=== PATIENT | male | born 1955 | race Caucasian/White ===

== ENCOUNTER 2022-01-03 08:22 | Inpatient (IN) ==
[2022-01-03] MEDS ORDERED: dexAMETHasone**PF** 10 MG/ML VIAL IV ONE (08:53)
[2022-01-03] MEDS ORDERED: ONDANSETRON INJ 2 MG/ML 2 ML VIAL IV STA (08:53)
[2022-01-03] MEDS ORDERED: MoRPHine SULFATE 4 MG/ML 1 ML CARP\\VIAL IV PRN (08:53)
[2022-01-03] MEDS ORDERED: MoRPHine SULFATE 10 MG/ML CARP/VIAL IV STA (08:53)
--- NOTE | 2022-01-03 09:13 | Emergency Department Note ---
Impression & Plan Lower back pain, Lumbar disc herniation, Failure of outpatient treatment ED Provider Note NAME: DENNY COLUNGA AGE: 66 SEX: M : 1955 ARRIVES VIA: Walk-In INFORMANT: [Patient] ED PROVIDER(S): [Sal Ribeiro MD] CHIEF COMPLAINT: Back pain HISTORY OF PRESENT ILLNESS: The patient is a 66-year-old male with known lower back pain. For the last 2 weeks has had increased lower back pain that radiates to his left hip. The pain has been severe. He is on Percocet, gabapentin and Zanaflex. He has been to the ER for this pain and received some pain medication injections. The patient had an MRI of his back done about a week ago or so and it showed a disc herniation at L1-L2. The patient has discussed the findings with Dr. Wayne of spinal surgery and he needs an operation. As the patient was worsening, he was sent to the ER today for evaluation and presumed hospitalization for upcoming surgery. The patient states that his legs are not really weak, it is more so pain. He has no difficulty moving his urine or bowels. No numbness in the area of the groin. REVIEW OF SYSTEMS: See HPI for pertinent positives and negatives. A total of ten systems were reviewed and were otherwise negative. PMHx/PSHx: See Below SOCIAL HISTORY: See Below. PHYSICAL EXAM: GENERAL: Patient is in no acute distress. HEENT: No acute trauma, normocephalic atraumatic, mucous membranes moist, no nasal congestion, no scleral icterus. NECK: No stridor, no adenopathy, no meningismus, trachea is midline. LUNGS: Clear to auscultation bilaterally, no wheeze, no rhonchi, breath sounds equal. HEART: Without murmurs gallops or rubs, regular rate and rhythm. ABDOMEN: Soft, nontender, bowel sounds positive, no peritonitis. EXTREMITIES: No cyanosis or edema, full range of motion of all the joints without pain or difficulty, no signs for acute trauma. NEUROLOGIC: Oriented x 3, moves all extremities equally. SKIN: No rash, no jaundice, no diaphoresis. DIFFERENTIAL DIAGNOSIS: Musculoskeletal, disc herniation, fracture, metastatic disease, cord compression, discitis, sciatica, cauda equina, infection, aortic disease, renal colic, gastrointestinal, as well as other pathologies. EMERGENCY DEPARTMENT COURSE/PROCEDURES: MEDICAL DECISION MAKING: There is no leukocytosis or concerning anemia. There is a normal platelet count. No renal failure or significant electrolyte abnormality. Urinalysis does not show infection. COVID test returned negative. On exam, the patient was not febrile or toxic. He denied any issues moving his urine or bowels. Patient received IV Zofran for nausea, IV morphine for pain. He was given IV Decadron for inflammation. I did contact Dr. Wayne of spinal surgery. The patient is to be hospitalized for surgical intervention. The patient is aware of his findings, he understands the need for the hospital stay. I did speak with case management. 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 Beliefs That Will Affect Care: None marital status: Current Living Situation: Spouse Other Information That Helps Us Care for You: No Feels Safe at Home: Yes Safety Concerns: Feels Safe At This Time Assistive Devices: Cane and Walker Allergies Allergies Allergy/AdvReac Type Severity Reaction Status Date / Time No Known Allergies Allergy Verified 01/03/22 14:04 Home Meds Home Medications Medication Instructions Recorded Confirmed cholecalciferol (vitamin D3) 25 1,000 unit PO DAILY 09/19/18 01/03/22 mcg (1,000 unit) tablet (Vitamin D3) metformin 1,000 mg tablet 1,000 mg PO BID 09/19/18 01/03/22 cyanocobalamin (vitamin B-12) 1,000 mcg PO DAILY 12/18/21 01/03/22 1,000 mcg tablet (Vitamin B-12) mesalamine 0.375 gram 1.5 g PO DAILY 12/18/21 01/03/22 capsule,extended release 24 hr (Apriso) fyrzjpwu-adolcmom-ozdpm acid 400 1 tab PO DAILY 12/18/21 01/03/22 mcg-vit K 20 mcg-lycop 300 mcg tablet (Men's Multivitamin) tizanidine 4 mg tablet 4 mg PO Q12H PRN MUSCLE SPASMS 12/18/21 01/03/22 acetaminophen 500 mg tablet 1,000 mg PO Q6H PRN Pain 01/03/22 01/03/22 (Tylenol Extra Strength) oxycodone-acetaminophen 5 mg-325 1 tab PO Q6 PRN Pain 01/03/22 01/03/22 mg tablet Previous Rx's Medication Instructions Recorded gabapentin 300 mg capsule 300 mg PO Q8H #90 caps 12/18/21 Results & Data (ED) Vital Signs Vital Signs - 24 hr 01/03/22 08:29 Temperature 36.7 C Temperature Source Temporal Artery Scan Pulse Rate 117 H Respiratory Rate 20 Respiratory Effort / Characteristics Non-Labored Spontaneous Respiratory Depth Normal Blood Pressure 116/79 Blood Pressure Mean 91 Blood Pressure Position Sitting Pulse Oximetry 94 Oxygen Delivery Method Room Air Sepsis Recent Fever Within 48 Hours No Sepsis New/Unexplained Change in Mental Status N/A Sepsis Action Taken by Nursing No Action Required Home Medications Current Medication List: was personally reviewed by me Laboratory Data Attestation: I reviewed the patient's lab results. Result diagrams: 01/03/22 09:31 01/03/22 09:31 Lab Results 01/03/22 01/03/22 01/03/22 Range/Units 09:31 09:31 09:41 WBC 9.11 (4.8-10.8) K/ul RBC 5.35 (4.63-6.08) M/uL Hgb 16.3 (14.0-18.0) g/dl Hct 47.2 (40.1-51.0) % MCV 88.2 (80.0-100.0) fL MCH 30.5 (25.0-34.0) pg MCHC 34.5 (32.0-36.0) g/dL RDW Std Deviation 41.2 (36.4-46.3) fL RDW Coeff of Margaux 12.9 (11.5-14.5) % Plt Count 292 (130-400) K/uL MPV 9.0 L (9.4-12.4) fL Immature Gran % (Auto) 0.3 % Neut % (Auto) 67.2 % Lymph % (Auto) 18.1 % [place] % (Auto) 8.2 % Eos % (Auto) 5.4 % Baso % (Auto) 0.8 % Neut # (Auto) 6.12 (1.4-6.5) K/uL Lymph # (Auto) 1.65 (1.2-3.4) K/uL [place] # (Auto) 0.75 (0.24-0.82) K/uL Eos # (Auto) 0.49 (0-0.50) K/uL Baso # (Auto) 0.07 (0-0.2) K/uL Immature Gran # (Auto) 0.03 H (0.00-0.02) K/uL Sodium 137 (136-145) mmol/L Potassium 4.8 (3.5-5.1) mmol/L Chloride 101 (98-107) mmol/L Carbon Dioxide 29 (21-32) mmol/L Anion Gap 7 (3-11) BUN 17 (6-23) mg/dl Creatinine 1.00 (0.6-1.4) mg/dl Est Cr Clr Drug Dosing 79.3 ml/min Est GFR ( Amer) 89.9 ml/min Est GFR (Non-Af Amer) 77.5 ml/min BUN/Creatinine Ratio 17.0 (10-20) Glucose 168 H (70-99(Fasting)) mg/dl Calcium 10.1 (8.5-10.1) mg/dl SARS-CoV-2, RNA, NAAT NEGATIVE (NEGATIVE) Administered Medications Acetaminophen (Acetaminophen 500 Mg Tab) 1,000 mg PO Q8H PRN PRN Reason: MILD Pain Scale 1,2,3 & Pre PT Stop: 02/02/22 12:04 Last Admin: 01/03/22 15:18 Dose: 1,000 mg Documented By: AMS Gabapentin (Gabapentin 300 Mg Cap) 300 mg PO Q8H FRANKIE Stop: 02/02/22 12:04 Last Admin: 01/03/22 14:27 Dose: 300 mg Documented By: JEROME Lactated Ringer's (Lr) 1,000 mls @ 75 mls/hr IV .[id number] FRANKIE Stop: 02/02/22 12:04 Last Admin: 01/03/22 13:34 Dose: 75 mls/hr Documented By: BG Discontinued Medications Dexamethasone Sodium Phosphate (DexamethasonePf 10 Mg/Ml Vial) 6 mg IV NOW ONE Stop: 01/03/22 08:54 Last Admin: 01/03/22 09:26 Dose: 6 mg Documented By: BG Morphine Sulfate (Morphine Sulfate 10 Mg/Ml Carp/Vial) 6 mg IV NOW STA Stop: 01/03/22 08:54 Last Admin: 01/03/22 09:26 Dose: 6 mg Documented By: BG Ondansetron HCl (Ondansetron Inj 2 Mg/Ml 2 Ml Vial) 4 mg IV NOW STA Stop: 01/03/22 08:54 Last Admin: 01/03/22 09:26 Dose: 4 mg Documented By: BG Discharge Plan Visit Data Chief Complaint: Back Injury/Pain Stated Complaint: BACK PAIN ED Provider: Sal Ribeiro Discharge Problem: Lower back pain, Lumbar disc herniation, Failure of outpatient treatment Patient Disposition: Admitted As Inpatient Condition: Good Discharge Instructions Interventions: ED Discharge Assessment Last Done: 01/03/22 12:06
[2022-01-03 09:47] LABS: Basophils # (auto) 0.07 K/uL (0-0.2); Basophils % (auto) 0.8 %; Eosinophils # (auto) 0.49 K/uL (0-0.50); Eosinophils % (auto) 5.4 %; Hematocrit (blood only) 47.2 % (40.1-51.0); Hemoglobin 16.3 g/dl (14.0-18.0); Immature Granulocytes # (auto) 0.03 K/uL (0.00-0.02); Immature Granulocytes % (auto) 0.3 %; Lymphocytes # (auto) 1.65 K/uL (1.2-3.4); Lymphocytes % (auto) 18.1 %; Mean Corpuscular Hemoglobin 30.5 pg (25.0-34.0); Mean Corpuscular Hgb Conc 34.5 g/dL (32.0-36.0); Mean Corpuscular Volume 88.2 fL (80.0-100.0); Monocytes # (auto) 0.75 K/uL (0.24-0.82); Monocytes % (auto) 8.2 %; Neutrophils # (auto) 6.12 K/uL (1.4-6.5); Neutrophils % (auto) 67.2 %; Platelet Count 292 K/uL (130-400); RDW Coefficient of Variation 12.9 % (11.5-14.5); RDW Standard Deviation 41.2 fL (36.4-46.3); Red Blood Count 5.35 M/uL (4.63-6.08); White Blood Count 9.11 K/ul (4.8-10.8)
[2022-01-03 10:19] LABS: Calcium 10.1 mg/dl (8.5-10.1); Creatinine Clr Calc Pharmacy 79.3 ml/min; Est GFR (African American) 89.9 ml/min; Est GFR (Non-African American) 77.5 ml/min; Potassium 4.8 mmol/L (3.5-5.1)
--- NOTE | 2022-01-03 10:32 | History & Physical Report ---
Date of Service January 03, 2022 Assessment & Plan (1) HNP (herniated nucleus pulposus), lumbar: Plan: Patient was evaluated in the ER. Patient is being admitted to Dr. Wayne service. Will admit for evaluation with the hospitalist team. We will plan to pursue surgical intervention within the next couple of days in the form of a posterior lumbar decompression and instrumented fusion L1-2, possible interbody cage. All questions have been answered in detail. History of Present Illness Chief Complaint: Back and left leg pain Primary Care Provider: Shayna Dye MD Tim is a pleasant 66-year-old gentleman who presents to the ER this morning due to increasing pain involving his lower back and radiating down his left lower extremity. Symptoms have been ongoing but really quite severe over the past 2 weeks. He has completed physical therapy without improvement. He has seen Dr. Bernal one of her local pain management physicians but after MRI was performed due to his degree of stenosis and disc herniation L1 2 injections were deferred. He met with Dr. Wayne last week for surgical consultation. Carmelo kramer at home he has been taking Zanaflex, Neurontin, Percocet for pain control. Symptoms involve the lower lumbar region rating down the left buttock and thigh. Sometimes it affects the left knee. Right leg is asymptomatic. Standing and walking reproduces symptoms. He is most comfortable lying down or in a seated position. Ambulates independently. Denies bowel or bladder changes. Denies pe rineum numbness. He has had 2 prior lumbar laminectomies [address] Agustin in the . Second 1 was 3 or [address] Alvarado. Allergies Allergy/AdvReac Type Severity Reaction Status Date / Time No Known Allergies Allergy Verified 12/18/21 02:31 Home Medications Medication Instructions Recorded Confirmed Type cholecalciferol (vitamin D3) 25 1,000 unit PO DAILY 09/19/18 12/18/21 History mcg (1,000 unit) tablet (Vitamin D3) metformin 1,000 mg tablet 1,000 mg PO BID 09/19/18 12/18/21 History cyanocobalamin (vitamin B-12) 1,000 mcg PO DAILY 12/18/21 12/18/21 History 1,000 mcg tablet (Vitamin B-12) gabapentin 300 mg capsule 300 mg PO Q8H #90 caps 12/18/21 Rx mesalamine 0.375 gram 1.5 g PO DAILY 12/18/21 12/18/21 History capsule,extended release 24 hr (Apriso) vbjyzggd-aljxtjxh-tnwas acid 400 1 tab PO DAILY 12/18/21 12/18/21 History mcg-vit K 20 mcg-lycop 300 mcg tablet (Men's Multivitamin) tizanidine 4 mg tablet 4 mg PO Q12H PRN MUSCLE SPASMS 12/18/21 12/18/21 History Past Med/Surg History Medical History (Updated 01/03/22 @ 10:31 by Ermelinda Holden PA-C) Chronic back pain HAD EPIDURAL INJECTION 10/03/2018 Diabetes mellitus, type 2 Hearing deficit Spinal stenosis Ulcerative colitis 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 Beliefs That Will Affect Care: None marital status: Current Living Situation: Spouse Feels Safe at Home: Yes Assistive Devices: Walker Review of Systems Review of Systems: All systems reviewed & are unremarkable except as noted in HPI & below Physical Exam Physical Exam: He is seen with his in the emergency room Cooperative with exam Modest distress Alert and orient x3 He has well-healed lumbar incisions Nontender to position of the midline lumbar spine Negative logrolling bilaterally Negative tension signs bilateral Breakaway weakness over the left EHL and dorsiflexion Otherwise 5 5 bilateral quadriceps, hamstrings, hip flexors, hip abductor's and hip adductor No evidence of ankle clonus Constitutional: WD/WN, vitals as above Eyes: normal visual ta by confrontation ENMT: external ear and nose normal, oropharynx normal Neck: trachea midline Respiratory: normal respiratory effort Cardiovascular: Extremities: normal capillary refill Gastrointestinal (Abdomen): Inspection/Auscultation: abdomen normal to insp ection Musculoskeletal: Extremities: extremities normal to inspection and + abnormal strength Skin: normal turgor Neurologic: normal touch/pain/proprioception and moves all extremities Psychiatric: A+Ox3, euthymic affect Eye Contact: good eye contact Speech: normal rate/rhythm/volume of speech Results & Data Results & Data ([facility]) Vital Signs (Past 12 Hours) Vital Signs Temp Pulse Resp BP Pulse Ox O2 Del Method 01/03/22 08:29 36.7 C 117 H 20 116/79 94 Room Air Code Status & VTE Plan VTE Prophylaxis Plan VTE Prophylaxis will be ordered: Yes
[2022-01-03] MEDS ORDERED: LORazepam 0.5 MG TAB PO PRN (12:05)
[2022-01-03] MEDS ORDERED: METOCLOPRAMIDE HCL INJ 5 MG/ML 2 ML VIAL IV PRN (12:05)
[2022-01-03] MEDS ORDERED: ACETAMINOPHEN 1,000 MG/100 ML VIAL IV PRN (12:05)
[2022-01-03] MEDS ORDERED: HYDROmorphone INJ 1 MG/ML SYRINGE IV PRN (12:05)
[2022-01-03] MEDS ORDERED: traMADol HCL 50 MG TABLET PO PRN (12:05)
[2022-01-03] MEDS ORDERED: ONDANSETRON INJ 2 MG/ML 2 ML VIAL IV PRN (12:05)
[2022-01-03] MEDS ORDERED: NALOXONE HCL 0.4 MG/1 ML VIAL/CARP IV PRN (12:05)
[2022-01-03] MEDS ORDERED: PROMETHAZINE HCL 12.5 MG in SODIUM CHLORIDE 0.9% 50 ML IV PRN (12:05)
[2022-01-03] MEDS ORDERED: LACTATED RINGER'S 1,000 ML IV SCH (12:05)
[2022-01-03] MEDS ORDERED: ONDANSETRON 4 MG OD TAB PO PRN (12:05)
[2022-01-03] MEDS ORDERED: HYDROmorphone INJ 0.5 MG/0.5 ML SYR IV PRN (12:05)
[2022-01-03 13:50] LABS: Appearance Urine Clear (Clear); Bilirubin Urine Negative (Negative); Blood Urine Negative (Negative); Color Urine Yellow; Glucose Urine UA Trace (Negative); Ketones Urine Negative (Negative); Leukocyte Esterase Urine Negative (Negative); Nitrite Urine Negative (Negative); Protein Urine Negative (Negative); Specific Gravity Urine 1.011 (1.000-1.030); Urobilinogen Urine Negative (Negative); pH Urine 5.5 (4.5-7.5)
[2022-01-03] MEDS: GABAPENTIN 300 MG CAP PO SCH ×2 (14:27→21:22)
[2022-01-03] MEDS: ACETAMINOPHEN 500 MG TAB PO PRN ×2 (15:18→23:50)
--- NOTE | 2022-01-03 19:24 | Internal Medicine Consult Note ---
Date of Consultation January 03, 2022 Assessment & Plan (1) Lumbar disc herniation: Lumbar disc herniation H/O lumbar spinal stenosis S/P multiple surgeries Ambulatory dysfunction Pain control as per primary team Plan for lumbar decompression fusion surgery by Dr. Wayne Bowel regimen to prevent constipation DM Type II: Will hold oral diabetic meds Check HbA1c: ISS, basal Insulin, Accu checks, Diabetic diet Pharmacy Glycemic control consult Pharmacy to manage Insulin Chronic tachycardia Unclear etiology Check EKG Ulcerative colitis H/O recurrent C. difficile infection Continue mesalamine Currently no acute issues DVT Px: As per Primary Team History of Present Illness Reason for Consultation: Medical Management Requesting Physician: Attending Physician: Oscar Wayne, DO History of Present Illness Patient is a 66-year-old male with history of diabetes mellitus, lumbar spinal stenosis, ulcerative colitis, recurrent C. difficile infection, chronic tachycardia and other medical problems was consulted for medical management. Patient is admitted for management of herniated lumbar disc and was planned for posterior lumbar decompression, fusion surgery. Patient states that his lower back pain has been worsening especially over the past 2 weeks. He complains back pain which is radiating to left lower extremity associated with some numbness. Also reports chronic bilateral toe numbness. He completed physical therapy which did not help with his back pain. He reports having ambulatory dysfunction secondary to the pain. He had an MRI of his back suggestive of lumbar spinal stenosis with disc herniation L1-2. He has been using Zanaflex and Neurontin for pain control which only temporarily helps. He denies any bowel or bladder incontinence. He admits to have undergone multiple lumbar surgeries in the past. His last C. difficile infection was in May which lasted for about 6 weeks as per patient. Denies any history of chest pain, dyspnea, dizziness, cough, fever, chills, fall, headache, change in vision, nausea, vomiting, abdominal pain, diarrhea, dysuria. Allergies Allergy/AdvReac Type Severity Reaction Status Date / Time No Known Allergies Allergy Verified 01/03/22 14:04 Home Medications Medication Instructions Recorded Confirmed Type cholecalciferol (vitamin D3) 25 1,000 unit PO DAILY 09/19/18 01/03/22 History mcg (1,000 unit) tablet (Vitamin D3) metformin 1,000 mg tablet 1,000 mg PO BID 09/19/18 01/03/22 History cyanocobalamin (vitamin B-12) 1,000 mcg PO DAILY 12/18/21 01/03/22 History 1,000 mcg tablet (Vitamin B-12) gabapentin 300 mg capsule 300 mg PO Q8H #90 caps 12/18/21 01/03/22 Rx mesalamine 0.375 gram 1.5 g PO DAILY 12/18/21 01/03/22 History capsule,extended release 24 hr (Apriso) ulvbdphf-vxtndrbo-mxzwr acid 400 1 tab PO DAILY 12/18/21 01/03/22 History mcg-vit K 20 mcg-lycop 300 mcg tablet (Men's Multivitamin) tizanidine 4 mg tablet 4 mg PO Q12H PRN MUSCLE SPASMS 12/18/21 01/03/22 History acetaminophen 500 mg tablet 1,000 mg PO Q6H PRN Pain 01/03/22 01/03/22 History (Tylenol Extra Strength) dulaglutide 0.75 mg/0.5 mL 1.5 mg subcut Q7D 01/03/22 01/03/22 History subcutaneous pen injector (Trulicity) oxycodone-acetaminophen 5 mg-325 1 tab PO Q6 PRN Pain 01/03/22 01/03/22 History mg tablet Patient History Medical History Chronic back pain HAD EPIDURAL INJECTION 10/03/2018 Diabetes mellitus, type 2 Hearing deficit Spinal stenosis Ulcerative colitis 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 Beliefs That Will Affect Care: None marital status: Current Living Situation: Spouse Other Information That Helps Us Care for You: No Feels Safe at Home: Yes Safety Concerns: Feels Safe At This Time Assistive Devices: Cane and Walker Review of Systems Review of Systems: All systems reviewed & are unremarkable except as noted in Subjective Physical Exam Physical Exam: Physical Exam: Vitals signs as noted above General Appearance:Moderately built and nourished, no apparent distress Head: normocephalic, Atraumatic Eyes: normal inspection, EOMI Neck: supple, Trachea midline Respiratory/Chest: Normal breath sounds, CTA, No accessory muscle use Cardiovascular: S1, S2, tachycardia, No murmur Abdomen/GI:Soft, Non tender, Bowel sounds present Extremities/Musculoskeletal:normal inspection, Trace edema Neurologic/Psych:AAOX3, grossly no focal neurological deficits Skin: normal color, warm Results & Data ([facility]) Vital Signs (Past 12 Hours) Vital Signs Temp Pulse Pulse Resp BP BP Pulse Ox 01/03/22 18:22 119 H 22 151/94 H 92 01/03/22 15:20 116 H 18 138/85 92 01/03/22 13:08 105 H 16 141/85 H 92 01/03/22 12:00 108 H 16 125/78 94 01/03/22 10:22 90 18 132/85 98 01/03/22 08:29 36.7 C 117 H 20 116/79 94 O2 Del Method 01/03/22 18:22 Room Air 01/03/22 15:20 Room Air 01/03/22 13:08 Room Air 01/03/22 12:00 Room Air 01/03/22 10:22 01/03/22 08:29 Room Air Laboratory Results Short CBC 01/03/22 Range/Units 09:31 WBC 9.11 (4.8-10.8) K/ul Hgb 16.3 (14.0-18.0) g/dl Hct 47.2 (40.1-51.0) % Plt Count 292 (130-400) K/uL BMP 01/03/22 09:31 Sodium 137 Potassium 4.8 Chloride 101 Carbon Dioxide 29 BUN 17 Creatinine 1.00 Glucose 168 H Calcium 10.1 Urine 01/03/22 Range/Units 13:35 Urine Color Yellow Urine Appearance Clear (Clear) Urine pH 5.5 (4.5-7.5) Ur Specific [place] 1.011 (1.000-1.030) Urine Protein Negative (Negative) Urine Glucose (UA) Trace H (Negative)
[2022-01-03] MEDS ORDERED: PHARMACY GLYCEMIC MGMT CONSULT PRN (19:55)
[2022-01-03] MEDS ORDERED: GLUCOSE 40% GEL 15 GM TUBE PO PRN (19:55)
[2022-01-03] MEDS ORDERED: DEXTROSE 50% 50 ML SYRINGE IV PRN (19:55)
[2022-01-03] MEDS ORDERED: GLUCOSE 10 TAB/TUBE PO PRN (19:55)
[2022-01-03] MEDS ORDERED: GLUCAGON FOR INJ 1 MG VIAL SQ PRN (19:55)
[2022-01-03] MEDS ORDERED: CARBOHYDRATES FOR HYPOGLYCEMIA PO PRN (19:55)
[2022-01-03] MEDS ORDERED: POLYETHYLENE (MIRALAX) 17 GM PACK PO PRN (19:56)
[2022-01-03] MEDS ORDERED: DOCUSATE SODIUM 100 MG CAP PO PRN (19:56)
[2022-01-03] MEDS ORDERED: LANTUS PER UNIT CHARGE SQ SCH ×2 (20:30→21:00)
[2022-01-03] MEDS ORDERED: INSULIN ASPART PER UNIT SC SCH (21:00)
[2022-01-03] MEDS: INSULIN ASPART PER UNIT SC SCH (21:20)
[2022-01-03] MEDS ORDERED: SODIUM CHLORIDE 0.9% 1000ML 1,000 ML IV ONE (23:33)
[2022-01-04] MEDS ORDERED: SODIUM CHLORIDE 0.9% 500 ML IV ONE (02:08)
[2022-01-04] MEDS ORDERED: SODIUM CHLORIDE 0.9% 1000ML 1,000 ML IV ONE (03:00)
[2022-01-04] MEDS: oxyCODONE HCL IR 5 MG TAB (IMMEDIATE RELEASE) PO PRN ×4 (05:02→19:50)
[2022-01-04] MEDS: GABAPENTIN 300 MG CAP PO SCH ×3 (05:16→20:47)
[2022-01-04] MEDS ORDERED: ceFAZolin 2000MG 2,000 MG/15 ML SYR IV SCH (06:00)
[2022-01-04 06:28] LABS: Basophils # (auto) 0.04 K/uL (0-0.2); Basophils % (auto) 0.6 %; Eosinophils # (auto) 0.17 K/uL (0-0.50); Eosinophils % (auto) 2.4 %; Hematocrit (blood only) 43.9 % (40.1-51.0); Hemoglobin 15.2 g/dl (14.0-18.0); Immature Granulocytes # (auto) 0.03 K/uL (0.00-0.02); Immature Granulocytes % (auto) 0.4 %; Lymphocytes # (auto) 1.58 K/uL (1.2-3.4); Lymphocytes % (auto) 22.2 %; Mean Corpuscular Hgb Conc 34.6 g/dL (32.0-36.0); Mean Corpuscular Volume 86.6 fL (80.0-100.0); Mean Platelet Volume 9.1 fL (9.4-12.4); Monocytes # (auto) 0.77 K/uL (0.24-0.82); Monocytes % (auto) 10.8 %; Neutrophils # (auto) 4.52 K/uL (1.4-6.5); Neutrophils % (auto) 63.6 %; Platelet Count 286 K/uL (130-400); RDW Coefficient of Variation 12.7 % (11.5-14.5); RDW Standard Deviation 39.8 fL (36.4-46.3); Red Blood Count 5.07 M/uL (4.63-6.08); White Blood Count 7.11 K/ul (4.8-10.8)
[2022-01-04 06:29] LABS: Estimated Average Glucose 192 mg/dl; Hemoglobin A1C 8.3 % (4.5-5.6)
[2022-01-04 07:05] LABS: BUN Creatinine Ratio 16.3 (10-20); Calcium 9.3 mg/dl (8.5-10.1); Creatinine Clr Calc Pharmacy 92.9 ml/min; Est GFR (Non-African American) 89.7 ml/min; Magnesium 2.1 mg/dl (1.7-2.4); Potassium 3.7 mmol/L (3.5-5.1)
--- NOTE | 2022-01-04 07:44 | Hospitalist Progress Note ---
Date of Service January 04, 2022 Assessment & Plan (1) Lumbar disc herniation: Plan: Lumbar disc herniation H/O lumbar spinal stenosis S/P multiple surgeries Ambulatory dysfunction Pain control as per primary team Plan for lumbar decompression fusion surgery by Dr. Wayne Bowel regimen to prevent constipation DM Type II: Will hold oral diabetic meds Current HbA1c 8.3% - close PCP follow to arranged after DC ISS, basal Insulin, Accu checks, Diabetic diet Pharmacy Glycemic control consult Pharmacy to manage Insulin Chronic tachycardia Unclear etiology EKG with T inversions in inferior leads, sinus tachycardia Pt with no chest pain or any cardiac history Echo ordered Ulcerative colitis H/O recurrent C. difficile infection Continue mesalamine Currently no acute issues DVT Px: As per Primary Team Admission and Anticipated Discharge Date Admission Date: January 03, 2022 Subjective Pt seen in follow up/ consultation for lumbar disc herniation, plan for OR likely tmrw HbA1c 8.3% - close pcp follow up to be arranged Patient is currently laying in bed, in no acute distress, when ambulating he is bent over, continues to have back pain No fever, chills, chest pain, shortness of breath Review of Systems Review of Systems: All systems reviewed & are unremarkable except as noted in Subjective Physical Exam Physical Exam: General Appearance:Moderately built and nourished, no apparent distress Head: normocephalic, Atraumatic Eyes: normal inspection, EOMI Neck: supple, Trachea midline Respiratory/Chest: Normal breath sounds, CTA, No accessory muscle use Cardiovascular: S1, S2, mild tachycardia, No murmur Abdomen/GI:Soft, Non tender, Bowel sounds present Extremities/Musculoskeletal:normal inspection, Trace edema Neurologic/Psych:AAOX3, grossly no focal neurological deficits Skin: normal color, warm Results & Data Results & Data ([facility]) Vital Signs (Past 12 Hours) Vital Signs Temp Pulse Pulse Resp BP Pulse Ox O2 Del Method 01/04/22 05:10 96 H 152/96 H 01/04/22 02:06 114 H 116/80 01/03/22 23:35 112 H 149/90 H 01/03/22 21:50 37 C 120 H 20 147/94 H 91 Room Air Laboratory Results 01/04/22 01/04/22 01/04/22 Range/Units 17:03 12:09 08:00 WBC (4.8-10.8) K/ul RBC (4.63-6.08) M/uL Hgb (14.0-18.0) g/dl Hct (40.1-51.0) % MCV (80.0-100.0) fL MCH (25.0-34.0) pg MCHC (32.0-36.0) g/dL RDW Std Deviation (36.4-46.3) fL RDW Coeff of Margaux (11.5-14.5) % Plt Count (130-400) K/uL MPV (9.4-12.4) fL Immature Gran % (Auto) % Neut % (Auto) % Lymph % (Auto) % Prentiss % (Auto) % Eos % (Auto) % Baso % (Auto) % Neut # (Auto) (1.4-6.5) K/uL Lymph # (Auto) (1.2-3.4) K/uL Prentiss # (Auto) (0.24-0.82) K/uL Eos # (Auto) (0-0.50) K/uL Baso # (Auto) (0-0.2) K/uL Immature Gran # (Auto) (0.00-0.02) K/uL Sodium (136-145) mmol/L Potassium (3.5-5.1) mmol/L Chloride (98-107) mmol/L Carbon Dioxide (21-32) mmol/L Anion Gap (3-11) BUN (6-23) mg/dl Creatinine (0.6-1.4) mg/dl Est Cr Clr Drug Dosing ml/min Est GFR ( Amer) ml/min Est GFR (Non-Af Amer) ml/min BUN/Creatinine Ratio (10-20) Glucose (70-99(Fasting)) mg/dl POC Glucose 102 H 112 H 129 H (70-99) mg/dl Estimat Average Glucose mg/dl Hemoglobin A1c (4.5-5.6) % Calcium (8.5-10.1) mg/dl Magnesium (1.7-2.4) mg/dl 01/04/22 01/04/22 01/04/22 Range/Units 05:33 05:33 05:33 WBC 7.11 (4.8-10.8) K/ul RBC 5.07 (4.63-6.08) M/uL Hgb 15.2 (14.0-18.0) g/dl Hct 43.9 (40.1-51.0) % MCV 86.6 (80.0-100.0) fL MCH 30.0 (25.0-34.0) pg MCHC 34.6 (32.0-36.0) g/dL RDW Std Deviation 39.8 (36.4-46.3) fL RDW Coeff of Margaux 12.7 (11.5-14.5) % Plt Count 286 (130-400) K/uL MPV 9.1 L (9.4-12.4) fL Immature Gran % (Auto) 0.4 % Neut % (Auto) 63.6 % Lymph % (Auto) 22.2 % Prentiss % (Auto) 10.8 % Eos % (Auto) 2.4 % Baso % (Auto) 0.6 % Neut # (Auto) 4.52 (1.4-6.5) K/uL Lymph # (Auto) 1.58 (1.2-3.4) K/uL Prentiss # (Auto) 0.77 (0.24-0.82) K/uL Eos # (Auto) 0.17 (0-0.50) K/uL Baso # (Auto) 0.04 (0-0.2) K/uL Immature Gran # (Auto) 0.03 H (0.00-0.02) K/uL Sodium 140 (136-145) mmol/L Potassium 3.7 D (3.5-5.1) mmol/L Chloride 106 (98-107) mmol/L Carbon Dioxide 26 (21-32) mmol/L Anion Gap 8 (3-11) BUN 14 (6-23) mg/dl Creatinine 0.86 (0.6-1.4) mg/dl Est Cr Clr Drug Dosing 92.9 ml/min Est GFR ( Amer) 104.0 ml/min Est GFR (Non-Af Amer) 89.7 ml/min BUN/Creatinine Ratio 16.3 (10-20) Glucose 131 H (70-99(Fasting)) mg/dl POC Glucose (70-99) mg/dl Estimat Average Glucose 192 mg/dl Hemoglobin A1c 8.3 H (4.5-5.6) % Calcium 9.3 (8.5-10.1) mg/dl Magnesium 2.1 (1.7-2.4) mg/dl 01/03/22 01/03/22 Range/Units 20:09 09:31 WBC (4.8-10.8) K/ul RBC (4.63-6.08) M/uL Hgb (14.0-18.0) g/dl Hct (40.1-51.0) % MCV (80.0-100.0) fL MCH (25.0-34.0) pg MCHC (32.0-36.0) g/dL RDW Std Deviation (36.4-46.3) fL RDW Coeff of Margaux (11.5-14.5) % Plt Count (130-400) K/uL MPV (9.4-12.4) fL Immature Gran % (Auto) % Neut % (Auto) % Lymph % (Auto) % Prentiss % (Auto) % Eos % (Auto) % Baso % (Auto) % Neut # (Auto) (1.4-6.5) K/uL Lymph # (Auto) (1.2-3.4) K/uL Prentiss # (Auto) (0.24-0.82) K/uL Eos # (Auto) (0-0.50) K/uL Baso # (Auto) (0-0.2) K/uL Immature Gran # (Auto) (0.00-0.02) K/uL Sodium (136-145) mmol/L Potassium (3.5-5.1) mmol/L Chloride (98-107) mmol/L Carbon Dioxide (21-32) mmol/L Anion Gap (3-11) BUN (6-23) mg/dl Creatinine (0.6-1.4) mg/dl Est Cr Clr Drug Dosing ml/min Est GFR ( Amer) ml/min Est GFR (Non-Af Amer) ml/min BUN/Creatinine Ratio (10-20) Glucose (70-99(Fasting)) mg/dl POC Glucose 203 H (70-99) mg/dl Estimat Average Glucose mg/dl Hemoglobin A1c (4.5-5.6) % Calcium (8.5-10.1) mg/dl Magnesium 2.0 (1.7-2.4) mg/dl Medications Administered Current Inpatient Medications Acetaminophen (Acetaminophen 500 Mg Tab) 1,000 mg PO Q8H PRN PRN Reason: MILD Pain Scale 1,2,3 & Pre PT Stop: 02/02/22 12:04 Last Admin: 01/03/22 23:50 Dose: 1,000 mg Dextrose (Dextrose 50% 50 Ml Syringe) 25 - 50 ml IV UD PRN; Protocol PRN Reason: Hypoglycemia Protocol Stop: 02/02/22 19:54 Docusate Sodium (Docusate Sodium 100 Mg Cap) 100 mg PO BID PRN PRN Reason: Constipation Stop: 02/02/22 20:59 Gabapentin (Gabapentin 300 Mg Cap) 300 mg PO Q8H FRANKIE Stop: 02/02/22 12:04 Last Admin: 01/04/22 05:16 Dose: 300 mg Glucagon (Glucagon For Inj 1 Mg Vial) 1 mg SQ UD PRN; Protocol PRN Reason: Hypoglycemia Protocol Stop: 02/02/22 19:54 Glucose (Glucose 40% Gel 15 Gm Tube) 15 - 30 gm PO UD PRN; Protocol PRN Reason: Hypoglycemia Protocol Stop: 02/02/22 19:54 Glucose (Glucose 10 Tab/Tube) 4 - 8 tab PO UD PRN; Protocol PRN Reason: Hypoglycemia Treatment Stop: 02/02/22 19:54 Hydromorphone HCl (Hydromorphone Inj 0.5 Mg/0.5 Ml Syr) 0.5 mg IV Q3H PRN PRN Reason: MOD pain (scale 4-6) & Pre PT Stop: 01/17/22 12:04 Hydromorphone HCl (Hydromorphone Inj 1 Mg/Ml Syringe) 1 mg IV Q3H PRN PRN Reason: severe pain (scale 7-10) Stop: 01/17/22 12:04 Promethazine HCl 12.5 mg/ (Sodium Chloride) 50.5 mls @ 202 mls/hr IV Q6H PRN PRN Reason: Nausea &/or Vomiting Stop: 02/02/22 12:04 Acetaminophen (Ofirmev) 1,000 mg in 100 mls @ 400 mls/hr IV Q8H PRN PRN Reason: Pain Rating 1-3 & Pre PT Stop: 01/04/22 12:06 Sodium Chloride (Nss 1000ml) 1,000 mls @ 100 mls/hr IV .Q10H ONE Stop: 01/04/22 12:59 Last Infusion: 01/04/22 06:44 Dose: 100 mls/hr Cefazolin Sodium (Ancef 2000mg) 2,000 mg in 15 mls @ 3.75 mls/min IV PREOP FRANKIE; Protocol Stop: 01/06/22 05:59 Insulin Aspart (Insulin Aspart Per Unit) 0 units SC ACHS FRANKIE Stop: 02/02/22 20:59 Last Admin: 01/03/22 21:20 Dose: 6 units Lorazepam (Lorazepam 0.5 Mg Tab) 0.5 mg PO Q8H PRN PRN Reason: sedation/anxiety Stop: 02/02/22 12:04 Metoclopramide HCl (Metoclopramide Hcl Inj 5 Mg/Ml 2 Ml Vial) 10 mg IV Q6H PRN PRN Reason: Nausea &/or Vomiting Stop: 02/02/22 12:04 Miscellaneous (Mesalamine [Apriso] 0.375 Gram Capsule ~ Order Awaiting Action) 1 each N/A QS FRANKIE Stop: 02/03/22 00:00 Last Admin: 01/03/22 23:50 Dose: Not Given Miscellaneous (Carbohydrates For Hypoglycemia ) 15 - 30 gm PO UD PRN PRN Reason: Hypoglycemia Protocol Stop: 02/02/22 19:54 Miscellaneous Information (Pharmacy Glycemic Mgmt Consult) 1 each N/A UD PRN PRN Reason: Consult Stop: 02/02/22 19:54 Morphine Sulfate (Morphine Sulfate 4 Mg/Ml 1 Ml Carp\Vial) 4 mg IV Q30M PRN PRN Reason: Pain Stop: 01/17/22 08:52 Naloxone HCl (Naloxone Hcl 0.4 Mg/1 Ml Vial/Carp) 0.1 mg IV Q5M PRN PRN Reason: Oversedation/respiratory dep Stop: 02/02/22 12:04 Ondansetron HCl (Ondansetron Inj 2 Mg/Ml 2 Ml Vial) 4 mg IV Q6H PRN PRN Reason: Nausea &/or Vomiting Stop: 02/02/22 12:04 Ondansetron HCl (Ondansetron 4 Mg Od Tab) 4 mg PO Q6H PRN PRN Reason: Nausea Stop: 02/02/22 12:04 Oxycodone HCl (Oxycodone Hcl Ir 5 Mg Tab (Immediate Release)) 5 - 10 mg PO Q4H PRN PRN Reason: mod to severe pain Stop: 01/17/22 12:04 Last Admin: 01/04/22 05:02 Dose: 5 mg Polyethylene Glycol (Polyethylene (Miralax) 17 Gm Pack) 17 gm PO DAILY PRN PRN Reason: Constipation Stop: 02/02/22 19:55 Tramadol HCl (Tramadol Hcl 50 Mg Tablet) 50 - 100 mg PO Q4H PRN PRN Reason: Moderate-Severe pain & Pre PT Stop: 02/02/22 12:04
--- NOTE | 2022-01-04 08:30 | Orthopedic Progress Note ---
Date of Service January 04, 2022 Assessment & Plan (1) Lumbar disc herniation: Plan: I will continue with pain control today. Ambulate ad flash. We will make n.p.o. after midnight in anticipation of proceeding with surgical intervention with Dr. Wayne tomorrow. All questions have been answered in detail. Admission and Anticipated Discharge Date Admission Date: January 03, 2022 Subjective Patient had an uneventful evening. No change in pain or symptoms. Currently planning to undergo surgical intervention in the form of a posterior lumbar decompression and fusion at L1-[address] Wayne. Review of Systems Review of Systems: All systems reviewed & are unremarkable except as noted in HPI & below Physical Exam Physical Exam: Alert and oriented x3 No acute distress Strength unchanged lower extremities Results & Data ([facility]) Vital Signs (Past 12 Hours) Vital Signs Temp Pulse Pulse Resp BP Pulse Ox O2 Del Method 01/04/22 07:57 36.6 C 100 H 20 159/82 H 93 Nasal Cannula 01/04/22 05:10 96 H 152/96 H 01/04/22 02:06 114 H 116/80 01/03/22 23:35 112 H 149/90 H 01/03/22 21:50 37 C 120 H 20 147/94 H 91 Room Air
[2022-01-04] MEDS: INSULIN ASPART PER UNIT SC SCH ×4 (09:33→21:29)
--- NOTE | 2022-01-04 11:02 | Anesthesiology Consultation ---
Date of Service January 04, 2022 Assessment & Plan (1) Encounter for pre-operative examination: Chart Review Chart Review: Acceptable Risk for Surgery and Patient NOT seen in Pre Admission Testing Consults Requested none medicine team is following the patient History Surgery Operation Date: 01/05/22 13:25 Proposed Procedures p L1-L2 Decompression and Fusion - Oscar Wayne DO Height/Weight Height: 5 ft 9 in Weight: 90.9 kg Allergies Allergy/AdvReac Type Severity Reaction Status Date / Time No Known Allergies Allergy Verified 01/03/22 14:04 Medications Home Medications Medication Instructions Recorded Confirmed Last Taken cholecalciferol (vitamin D3) 25 1,000 unit PO DAILY 09/19/18 01/03/22 12/17/21 mcg (1,000 unit) tablet (Vitamin D3) metformin 1,000 mg tablet 1,000 mg PO BID 09/19/18 01/03/22 01/03/22 07:00 cyanocobalamin (vitamin B-12) 1,000 mcg PO DAILY 12/18/21 01/03/22 12/17/21 1,000 mcg tablet (Vitamin B-12) gabapentin 300 mg capsule 300 mg PO Q8H #90 caps 12/18/21 01/03/22 01/03/22 07:00 mesalamine 0.375 gram 1.5 g PO DAILY 12/18/21 01/03/22 01/03/22 07:00 capsule,extended release 24 hr (Apriso) [id number] acid 400 1 tab PO DAILY 12/18/21 01/03/22 12/17/21 mcg-vit K 20 mcg-lycop 300 mcg tablet (Men's Multivitamin) tizanidine 4 mg tablet 4 mg PO Q12H PRN MUSCLE SPASMS 12/18/21 01/03/22 01/03/22 07:00 acetaminophen 500 mg tablet 1,000 mg PO Q6H PRN Pain 01/03/22 01/03/22 01/03/22 07:00 (Tylenol Extra Strength) dulaglutide 0.75 mg/0.5 mL 1.5 mg subcut Q7D 01/03/22 01/03/22 Unknown subcutaneous pen injector (Trulicity) oxycodone-acetaminophen 5 mg-325 1 tab PO Q6 PRN Pain 01/03/22 01/03/22 01/03/22 07:00 mg tablet Active Medications Generic Name Dose Route Start Last Admin Trade Name Freq PRN Reason Stop Dose Admin Acetaminophen 1,000 mg 01/03/22 12:05 01/03/22 23:50 Acetaminophen 500 Mg Tab PO 02/02/22 12:04 1,000 mg Q8H PRN Administration MILD Pain Scale 1,2,3 & Pre PT Gabapentin 300 mg 01/03/22 12:05 01/04/22 05:16 Gabapentin 300 Mg Cap PO 02/02/22 12:04 300 mg Q8H FRANKIE Administration Sodium Chloride 1,000 mls @ 100 mls/hr 01/04/22 03:00 01/04/22 06:44 Nss 1000ml IV 01/04/22 12:59 100 mls/hr .Q10H ONE Infusion Insulin Aspart 0 units 01/03/22 21:00 01/04/22 09:33 Insulin Aspart Per Unit SC 02/02/22 20:59 6 units ACHS FRANKIE Administration Miscellaneous 1 each 01/04/22 00:00 01/04/22 07:46 Mesalamine [Apriso] 0.375 Gram Capsule ~ Order Awaiting Action N/A 02/03/22 00:00 Not Given QS FRANKIE Oxycodone HCl 5 - 10 mg 01/03/22 12:05 01/04/22 05:02 Oxycodone Hcl Ir 5 Mg Tab (Immediate Release) PO 01/17/22 12:04 5 mg Q4H PRN Administration mod to severe pain Past Medical History Medical History (Updated 01/04/22 @ 11:01 by Abimael Munoz MD) Chronic back pain HAD EPIDURAL INJECTION 10/03/2018 Diabetes mellitus, type 2 Hearing deficit Spinal stenosis Ulcerative colitis 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 Residual deficit in L 5th digit Past Family History Family History Mother Colon cancer Father Myocardial infarction Past Surgical History Surgical History H/O tooth extraction History of colonoscopy History of lumbar surgery History of surgery on arm LUE ulnar nerve transposition History of total knee replacement B/L Social History Smoking Status: Never smoker Hx Alcohol Use: No Hx Substance Use: No substance use type: does not use Physical Exam Vital Signs Last Vital Signs Temp 36.6 C 01/04/22 07:57 Pulse 100 H 01/04/22 07:57 Resp 20 01/04/22 07:57 BP 159/82 H 01/04/22 07:57 Pulse Ox 93 01/04/22 07:57 O2 Del Method 01/04/22 07:57 Testing Laboratory Results 01/04/22 05:33 01/04/22 05:33 Hemoglobin A1c 8.3 % (4.5-5.6) H 01/04/22 05:33 Urine Color Yellow 01/03/22 13:35 Urine Appearance Clear (Clear) 01/03/22 13:35 Urine pH 5.5 (4.5-7.5) 01/03/22 13:35 Ur Specific [place] 1.011 (1.000-1.030) 01/03/22 13:35 Urine Protein Negative (Negative) 01/03/22 13:35 Urine Glucose (UA) Trace (Negative) H 01/03/22 13:35 Urine Ketones Negative (Negative) 01/03/22 13:35 Urine Nitrite Negative (Negative) 01/03/22 13:35 Ur Leukocyte Esterase Negative (Negative) 01/03/22 13:35 01/04/22 08:00 POC Glucose 129 H Electrocardiogram Date: 01/03/22 Findings: + T wave inversion (inferior leads) and + ST @ (116)
[2022-01-04] MEDS ORDERED: MESALAMINE 1.2 GM PO SCH ×2 (12:00→12:15)
[2022-01-04] MEDS: MESALAMINE 1.2 GM PO SCH (12:46)
--- NOTE | 2022-01-04 15:18 | Pharmacy Report ---
Pharmacy Glycemic Short Note 2 - Date of Service January 04, 2022 - Glycemic Short BSG Results (Last 24 hours): 01/03/22 01/04/22 01/04/22 20:09 05:33 08:00 Glucose 131 H POC Glucose 203 H 129 H 01/04/22 12:09 Glucose POC Glucose 112 H OUTPATIENT ANTIDIABETIC REGIMEN: * Metformin 1 gm BID, Trulicity * A1c 8.3% 01/04 ASSESSMENT: * Pt admitted for spinal surgery, 01/05. Will be NPO after midnight---> reduce/hold lantus this evening per scale * BSGs have been well controlled today, continue current novolog parameters PLAN FOR INPATIENT GLYCEMIC CONTROL: * Hold outpatient oral diabetes medications * Basal insulin * Lantus 0/7 units HS x 1 * Bolus insulin * NovoLog per scale ACHS or Q6hrs while NPO * Goal Range: Low 110 mg/dL - High 140 mg/dL * Correction Factor: 25 mg/dL/unit * Nutritional / Prandial insulin per carb ratio of 1 unit per 9 grams CHO consumed
[2022-01-04] MEDS ORDERED: LANTUS PER UNIT CHARGE SQ SCH (21:00)
[2022-01-05] MEDS ORDERED: Nursing to Pharmacy Communication SCH ×2 (01:00→19:30)
--- NOTE | 2022-01-05 05:16 | Electrocardiogram Report ---
Test Reason : Blood Pressure : / mmHG Vent. Rate : 116 BPM Atrial Rate : 116 BPM P-R Int : 178 ms QRS Dur : 080 ms QT Int : 308 ms P-R-T Axes : -01 -27 -26 degrees QTc Int : 428 ms Sinus tachycardia T wave abnormality, consider inferior ischemia When compared with ECG of 23-OCT-2018 13:24, T wave inversion more evident in Inferior leads Confirmed by James Clifton ([id number]) on 01/05/2022 5:16:00 AM Referred By: REFERRED SELF Confirmed By:James Clifton
[2022-01-05] MEDS: GABAPENTIN 300 MG CAP PO SCH ×3 (05:33→20:43)
[2022-01-05] MEDS ORDERED: ceFAZolin 2000MG 2,000 MG/15 ML SYR IV SCH (06:00)
[2022-01-05] MEDS: INSULIN ASPART PER UNIT SC SCH ×4 (06:21→20:43)
[2022-01-05 07:37] LABS: BUN Creatinine Ratio 14.9 (10-20); Calcium 9.6 mg/dl (8.5-10.1); Creatinine Clr Calc Pharmacy 91.8 ml/min; Est GFR (African American) 103.5 ml/min; Est GFR (Non-African American) 89.3 ml/min; Magnesium 2.1 mg/dl (1.7-2.4); Potassium 3.8 mmol/L (3.5-5.1)
--- NOTE | 2022-01-05 09:24 | Hospitalist Progress Note ---
Date of Service January 05, 2022 Assessment & Plan (1) Lumbar disc herniation: Plan: Lumbar disc herniation H/O lumbar spinal stenosis S/P multiple surgeries Ambulatory dysfunction Pain control as per primary team Plan for lumbar decompression fusion surgery by Dr. Wayne Bowel regimen to prevent constipation DM Type II: Will hold oral diabetic meds Current HbA1c 8.3% - close PCP follow to arranged after DC ISS, basal Insulin, Accu checks, Diabetic diet Pharmacy Glycemic control consult Pharmacy to manage Insulin Chronic tachycardia Unclear etiology EKG with T inversions in inferior leads, sinus tachycardia Pt with no chest pain or any cardiac history Echo obtained -LV normal in size. Normal LV wall thickness. LV wall motion is normal. EF 60 to 65%. There is no significant valvular disease. Ulcerative colitis H/O recurrent C. difficile infection Continue mesalamine Currently no acute issues DVT Px: As per Primary Team Admission and Anticipated Discharge Date Admission Date: January 03, 2022 Subjective Pt seen in follow up/ consultation for lumbar disc herniation, plan for OR likely later today HbA1c 8.3% - close pcp follow up to be arranged Patient is currently laying in bed, in no acute distress, continues to have back pain No fever, chills, chest pain, shortness of breath Review of Systems Review of Systems: All systems reviewed & are unremarkable except as noted in Subjective Physical Exam Physical Exam: General Appearance:Moderately built and nourished, no apparent distress Head: normocephalic, Atraumatic Eyes: normal inspection, EOMI Neck: supple Respiratory/Chest: Normal breath sounds, CTA, No accessory muscle use Cardiovascular: S1, S2, mild tachycardia HR 90s, No murmur Abdomen/GI:Soft, Non tender, Bowel sounds present Extremities/Musculoskeletal:normal inspection, Trace edema Neurologic/Psych:AAOX3, grossly no focal neurological deficits Skin: normal color, warm Results & Data Results & Data ([facility]) Vital Signs (Past 12 Hours) Vital Signs Temp Pulse Pulse Resp BP Pulse Ox O2 Del Method 01/05/22 07:46 36.6 C 94 H 18 147/92 H 92 Room Air 01/04/22 23:13 36.6 C 93 H 18 133/78 92 Room Air Laboratory Results 01/05/22 01/05/22 01/04/22 Range/Units 06:26 05:36 20:41 Sodium 140 (136-145) mmol/L Potassium 3.8 (3.5-5.1) mmol/L Chloride 106 (98-107) mmol/L Carbon Dioxide 26 (21-32) mmol/L Anion Gap 8 (3-11) BUN 13 (6-23) mg/dl Creatinine 0.87 (0.6-1.4) mg/dl Est Cr Clr Drug Dosing 91.8 ml/min Est GFR ( Amer) 103.5 ml/min Est GFR (Non-Af Amer) 89.3 ml/min BUN/Creatinine Ratio 14.9 (10-20) Glucose 96 (70-99(Fasting)) mg/dl POC Glucose 85 129 H (70-99) mg/dl Calcium 9.6 (8.5-10.1) mg/dl Magnesium 2.1 (1.7-2.4) mg/dl Blood Type Antibody Screen 01/04/22 01/04/22 01/04/22 Range/Units 20:10 17:03 12:09 Sodium (136-145) mmol/L Potassium (3.5-5.1) mmol/L Chloride (98-107) mmol/L Carbon Dioxide (21-32) mmol/L Anion Gap (3-11) BUN (6-23) mg/dl Creatinine (0.6-1.4) mg/dl Est Cr Clr Drug Dosing ml/min Est GFR ( Amer) ml/min Est GFR (Non-Af Amer) ml/min BUN/Creatinine Ratio (10-20) Glucose (70-99(Fasting)) mg/dl POC Glucose 102 H 112 H (70-99) mg/dl Calcium (8.5-10.1) mg/dl Magnesium (1.7-2.4) mg/dl Blood Type O Positive Antibody Screen NEGATIVE Medications Administered Current Inpatient Medications Acetaminophen (Acetaminophen 500 Mg Tab) 1,000 mg PO Q8H PRN PRN Reason: MILD Pain Scale 1,2,3 & Pre PT Stop: 02/02/22 12:04 Last Admin: 01/03/22 23:50 Dose: 1,000 mg Dextrose (Dextrose 50% 50 Ml Syringe) 25 - 50 ml IV UD PRN; Protocol PRN Reason: Hypoglycemia Protocol Stop: 02/02/22 19:54 Docusate Sodium (Docusate Sodium 100 Mg Cap) 100 mg PO BID PRN PRN Reason: Constipation Stop: 02/02/22 20:59 Gabapentin (Gabapentin 300 Mg Cap) 300 mg PO Q8H FRANKIE Stop: 02/02/22 12:04 Last Admin: 01/05/22 05:33 Dose: 300 mg Glucagon (Glucagon For Inj 1 Mg Vial) 1 mg SQ UD PRN; Protocol PRN Reason: Hypoglycemia Protocol Stop: 02/02/22 19:54 Glucose (Glucose 40% Gel 15 Gm Tube) 15 - 30 gm PO UD PRN; Protocol PRN Reason: Hypoglycemia Protocol Stop: 02/02/22 19:54 Glucose (Glucose 10 Tab/Tube) 4 - 8 tab PO UD PRN; Protocol PRN Reason: Hypoglycemia Treatment Stop: 02/02/22 19:54 Hydromorphone HCl (Hydromorphone Inj 0.5 Mg/0.5 Ml Syr) 0.5 mg IV Q3H PRN PRN Reason: MOD pain (scale 4-6) & Pre PT Stop: 01/17/22 12:04 Hydromorphone HCl (Hydromorphone Inj 1 Mg/Ml Syringe) 1 mg IV Q3H PRN PRN Reason: severe pain (scale 7-10) Stop: 01/17/22 12:04 Promethazine HCl 12.5 mg/ (Sodium Chloride) 50.5 mls @ 202 mls/hr IV Q6H PRN PRN Reason: Nausea &/or Vomiting Stop: 02/02/22 12:04 Cefazolin Sodium (Ancef 2000mg) 2,000 mg in 15 mls @ 3.75 mls/min IV PREOP FRANKIE; Protocol Stop: 01/06/22 05:59 Insulin Aspart (Insulin Aspart Per Unit) 0 units SC Q6 FRANKIE Stop: 02/04/22 05:59 Last Admin: 01/05/22 06:21 Dose: Not Given Lorazepam (Lorazepam 0.5 Mg Tab) 0.5 mg PO Q8H PRN PRN Reason: sedation/anxiety Stop: 02/02/22 12:04 Mesalamine (Mesalamine 1.2 Gm Tablet) 4 each PO Q24H FRANKIE Stop: 02/03/22 12:14 Last Admin: 01/04/22 12:46 Dose: 4 each Metoclopramide HCl (Metoclopramide Hcl Inj 5 Mg/Ml 2 Ml Vial) 10 mg IV Q6H PRN PRN Reason: Nausea &/or Vomiting Stop: 02/02/22 12:04 Miscellaneous (Carbohydrates For Hypoglycemia ) 15 - 30 gm PO UD PRN PRN Reason: Hypoglycemia Protocol Stop: 02/02/22 19:54 Miscellaneous Information (Pharmacy Glycemic Mgmt Consult) 1 each N/A UD PRN PRN Reason: Consult Stop: 02/02/22 19:54 Morphine Sulfate (Morphine Sulfate 4 Mg/Ml 1 Ml Carp\Vial) 4 mg IV Q30M PRN PRN Reason: Pain Stop: 01/17/22 08:52 Naloxone HCl (Naloxone Hcl 0.4 Mg/1 Ml Vial/Carp) 0.1 mg IV Q5M PRN PRN Reason: Oversedation/respiratory dep Stop: 02/02/22 12:04 Ondansetron HCl (Ondansetron Inj 2 Mg/Ml 2 Ml Vial) 4 mg IV Q6H PRN PRN Reason: Nausea &/or Vomiting Stop: 02/02/22 12:04 Ondansetron HCl (Ondansetron 4 Mg Od Tab) 4 mg PO Q6H PRN PRN Reason: Nausea Stop: 02/02/22 12:04 Oxycodone HCl (Oxycodone Hcl Ir 5 Mg Tab (Immediate Release)) 5 - 10 mg PO Q4H PRN PRN Reason: mod to severe pain Stop: 01/17/22 12:04 Last Admin: 01/04/22 19:50 Dose: 10 mg Polyethylene Glycol (Polyethylene (Miralax) 17 Gm Pack) 17 gm PO DAILY PRN PRN Reason: Constipation Stop: 02/02/22 19:55 Tramadol HCl (Tramadol Hcl 50 Mg Tablet) 50 - 100 mg PO Q4H PRN PRN Reason: Moderate-Severe pain & Pre PT Stop: 02/02/22 12:04
[2022-01-05] MEDS: oxyCODONE HCL IR 5 MG TAB (IMMEDIATE RELEASE) PO PRN ×2 (09:38→22:23)
[2022-01-05] MEDS ORDERED: MIDAZOLAM HCL 1 MG/ML 2ML VIAL ONE (12:33)
[2022-01-05] MEDS ORDERED: fentaNYL citrate 100 MCG/2 ML VIAL ONE (12:33)
[2022-01-05] MEDS: MESALAMINE 1.2 GM PO SCH (13:20)
--- NOTE | 2022-01-05 13:58 | History & Physical Bridge Note ---
Date of Service January 05, 2022 History & Physical Bridge Note I have examined the patient, reviewed the History & Physical and in the interval since the performance of the History & Physical I have noted the following changes of clinical significance: no changes noted decompression and fusion L1- L2
[2022-01-05] MEDS ORDERED: ATROPINE SULFATE 0.1 MG/ML 10ML SYR IV PRN (14:02)
[2022-01-05] MEDS ORDERED: HYDROmorphone INJ 1 MG/ML SYRINGE IV PRN ×2 (14:02→17:17)
[2022-01-05] MEDS ORDERED: PROMETHAZINE HCL 12.5 MG in SODIUM CHLORIDE 0.9% 50 ML IV PRN ×2 (14:02→17:17)
[2022-01-05] MEDS ORDERED: LABETALOL HCL IV 5 MG/ML 20ML IV PRN (14:02)
[2022-01-05] MEDS ORDERED: ONDANSETRON INJ 2 MG/ML 2 ML VIAL IV PRN ×2 (14:02→17:17)
[2022-01-05] MEDS ORDERED: ceFAZolin 330 MG/ML 1 GM VIAL ONE (14:17)
[2022-01-05] MEDS ORDERED: BUPIVACAINE/EPINEPHRINE 0.25% 1:200,000 30 ML VIAL ONE (14:17)
[2022-01-05] MEDS ORDERED: HYDROmorphone INJ 2 MG/ML SYR/VIAL ONE (14:45)
[2022-01-05] MEDS ORDERED: PROPOFOL IV EMULSION 10 MG/ML 20 ML VIAL IV ONE (14:49)
[2022-01-05] MEDS ORDERED: FLOSEAL HEMOSTATIC MATRIX 10ML TOP ONE (15:48)
[2022-01-05] MEDS ORDERED: GLYCOPYRROLATE 0.2 MG/ML VIAL ONE ×2 (15:58)
[2022-01-05] MEDS ORDERED: NEOSTIGMINE METHYLSULFATE 1 MG/ML 10ML VIAL ONE (15:58)
--- NOTE | 2022-01-05 16:04 | Operative Report ---
Post Operative Report Pre & Post Diagnosis Operation Date: 01/05/22 13:25 Pre-Op Diagnosis: Lumbar disc herniation with radiculopathy Post-Op Diagnosis: Same I identified the patient and participated in the time-out.: Yes Procedure Operation Date: 01/05/22 13:25 Actual Procedures #1 lumbar decompression bilateral medial facetectomies and foraminotomies L1-L2. #2 posterior spinal fusion L1-L2. #3 placement posterior instrumentation L1- L2. #4 interbody fusion L1-L2. #5 placement of Spira 13 x 26 mm cage at L1-L2. #6 placement locally harvested morselized autograft in the posterior gutters. #7 placement of I factor combined with V toss in the interbody space and posterior lateral gutters. Surgeon Oscar Wayne, Wrestling Coach Ermelinda Whitney Estimated Blood Loss 50 Findings Consistent with Post-Op Diagnosis Specimens None Indications This is a 66-year-old male who presents with above-mentioned diagnosis after failing course of nonoperative care struggling with severe radiculopathy is here for surgical invention. Description of Procedure Patient was met with identified informed consent obtained. Patient was then taken to the operative suite underwent a patient placed in a prone position the Ronak table atop the Haroldo frame. All bony prominences well-padded eyes inspected to ensure no external pressure placed upon the. This point the lumbar spine was prepped and draped no sterile fashion. Sharp dissection with the assistance of Bovie cautery was performed down to and exposing the lamina transverse processes of L1 and L2. From caudal cephalad fashion complete laminectomy of L1 was performed including medial facetectomies and foraminotomies as well as complete facetectomy on the left adequately and safely addressed the large disc herniation extending out through the foramen and caudally. After removal of the disc and decompression pedicle screws were placed in L1-L2 bilaterally with assistance of fluoroscopy and appropriate sized davion placed. By way of a transfemoral approach and left complete discectomy of L1-L2 was performed endplates curetted to subcortical bleeding bone and a 13 x 26 mm spiral cage with I factor tapped in position. The rods then compressed locked into final position bilaterally. The transverse processes of L1-L2 were then burred to subcortically bone. I factor model V toss and locally harvested morselized autograft was placed in the posterior gutters. 15 round CAROL ANN inserted. The incision was then closed with 1 Vicryl the fascia 2-0 Vicryl subcutaneously and 4 Monocryl for final skin closure. Steri-Strip sterile dressings placed. Patient then awakened taken the PACU in stable condition. Please note spinal cord monitoring was utilized at the procedure no changes noted. Lastly Ermelinda Whitney was present at the entire surgery involved the patient positioning complex portion of the surgery and final skin closure. I attest to the content of the Intraoperative Record and any orders documented therein. Any exceptions are noted below.
--- NOTE | 2022-01-05 16:25 | Fluoroscopy Report ---
FL lumbar spine 2-3V HISTORY: 66 years-old Male L1-L2 DECOMPRESSION AND FUSION chronic low back pain COMPARISON: Fluoroscopic images 11/04/2018 TECHNIQUE: 2 spot fluoroscopic images of the lumbar spine were obtained utilizing 35.7 seconds fluoro scopy time FINDINGS: Posterior interbody davion and screw fusion with discectomy noted at what is labeled the L1-L2 level. Ex act numbering cannot be confirmed secondary to magnification of the images which were submitted follo wing completion of the surgery. Multilevel intervertebral disc space narrowing with spondylitic spurr ing. Hardware appears intact. No unexpected opaque foreign body identified. IMPRESSION: Fluoroscopic assistance as above. ACT 112: Negative or not required by law. The above report was generated using voice recognition software. It may contain grammatical, syntax o r spelling errors. Electronically signed by: Samuel Cervantes M.D. 01/05/2022 4:23 PM
--- NOTE | 2022-01-05 17:04 | Anesthesiology Progress Note ---
Date of Service January 05, 2022 Anesthesia Post Procedure Vital Signs Vital Signs: Temp Pulse Pulse Pulse Resp BP Pulse Ox 01/05/22 17:00 36 C L 101 H 17 117/73 92 01/05/22 16:50 101 H 14 109/78 92 01/05/22 16:40 102 H 14 126/72 95 01/05/22 16:30 95 H 17 97/72 L 93 01/05/22 16:22 36 C L 84 13 113/79 95 01/05/22 12:46 36.8 C 105 H 18 135/90 96 01/05/22 07:46 36.6 C 94 H 18 147/92 H 92 01/04/22 23:13 36.6 C 93 H 18 133/78 92 O2 Del Method O2 Flow Rate 01/05/22 17:00 Nasal Cannula 2 01/05/22 16:50 Oxymask 5 01/05/22 16:40 Oxymask 5 01/05/22 16:30 Oxymask 5 01/05/22 16:22 Oxymask 5 01/05/22 12:46 Room Air 01/05/22 07:46 Room Air 01/04/22 23:13 Room Air Pain Intensity Left Hip: Pain Intensity: 5 Left Groin: Pain Intensity: 7 Transfer of Care Handoff Completed per policy Notes Mental Status: alert / awake / arousable and participated in evaluation Patient Amnestic to Procedure: Yes Nausea / Vomiting: adequately controlled Pain: adequately controlled Airway Patency, RR, SpO2: stable & adequate BP & HR: stable & adequate Hydration State: stable & adequate Anesthetic Complications: no major complications apparent and Pt Satisfied with anesthetic care
[2022-01-05] MEDS ORDERED: diphenhydrAMINE Capsule 25 MG CAP PO PRN (17:17)
[2022-01-05] MEDS ORDERED: ACETAMINOPHEN 1,000 MG/100 ML VIAL IV PRN (17:17)
[2022-01-05] MEDS ORDERED: ALUMINUM/MAGNESIUM SUSP 30 ML UDC PO PRN (17:17)
[2022-01-05] MEDS ORDERED: HYDROmorphone INJ 0.5 MG/0.5 ML SYR IV PRN (17:17)
[2022-01-05] MEDS ORDERED: LORazepam 0.5 MG TAB PO PRN (17:17)
[2022-01-05] MEDS ORDERED: ACETAMINOPHEN 500 MG TAB PO PRN (17:17)
[2022-01-05] MEDS ORDERED: hydrOXYzine HCl 25 MG TAB PO PRN (17:17)
[2022-01-05] MEDS ORDERED: traMADol HCL 50 MG TABLET PO PRN (17:17)
[2022-01-05] MEDS ORDERED: MAGNESIUM HYDROXIDE SUSP 30 ML UDC PO PRN (17:17)
[2022-01-05] MEDS ORDERED: METOCLOPRAMIDE HCL INJ 5 MG/ML 2 ML VIAL IV PRN (17:17)
[2022-01-05] MEDS ORDERED: FAMOTIDINE 20 MG TAB PO PRN (17:17)
[2022-01-05] MEDS ORDERED: NALOXONE HCL 0.4 MG/1 ML VIAL/CARP IV PRN (17:17)
[2022-01-05] MEDS ORDERED: SOD PHOSPHATE/SOD BIPHOSPHATE ENEMA 132 ML BTL PR PRN (17:17)
[2022-01-05] MEDS ORDERED: bisacodyL 10 MG SUPP PR PRN (17:17)
[2022-01-05] MEDS ORDERED: LORazepam 0.5 MG in SYRINGE 0 ML IV PRN (17:17)
[2022-01-05] MEDS ORDERED: ONDANSETRON 4 MG OD TAB PO PRN (17:17)
[2022-01-05] MEDS: LACTATED RINGER'S 1,000 ML IV SCH (17:37)
[2022-01-05] MEDS: DOCUSATE SODIUM/SENNA 50/8.6MG TAB PO SCH (20:43)
[2022-01-05] MEDS: LANTUS PER UNIT CHARGE SQ SCH (20:44)
[2022-01-05] MEDS: ceFAZolin 2000MG 2,000 MG/15 ML SYR IV SCH (22:23)
[2022-01-06] MEDS: LACTATED RINGER'S 1,000 ML IV SCH (00:54)
[2022-01-06] MEDS: oxyCODONE HCL IR 5 MG TAB (IMMEDIATE RELEASE) PO PRN ×4 (04:38→19:40)
[2022-01-06] MEDS: GABAPENTIN 300 MG CAP PO SCH ×3 (04:39→20:54)
[2022-01-06] MEDS: POLYETHYLENE (MIRALAX) 17 GM PACK PO SCH ×3 (06:10→17:13)
[2022-01-06] MEDS: ceFAZolin 2000MG 2,000 MG/15 ML SYR IV SCH (06:10)
--- NOTE | 2022-01-06 07:27 | Hospitalist Progress Note ---
Date of Service January 06, 2022 Assessment & Plan (1) Lumbar disc herniation: Plan: Lumbar disc herniation H/O lumbar spinal stenosis S/P multiple surgeries Ambulatory dysfunction Pain control as per primary team s/p lumbar decompression fusion surgery by Dr. Wayne, on 01/05 Bowel regimen to prevent constipation CHARLENE Cr 1.3 this AM Pt reports dark urine this AM 500 cc NS given, pt encouraged PO fluids intake DM Type II: Will hold oral diabetic meds Current HbA1c 8.3% - close PCP follow to be arranged after DC ISS, basal Insulin, Accu checks, Diabetic diet Pharmacy Glycemic control consult Pharmacy to manage Insulin Chronic tachycardia Unclear etiology EKG with T inversions in inferior leads, sinus tachycardia Pt with no chest pain or any cardiac history Echo obtained -LV normal in size. Normal LV wall thickness. LV wall motion is normal. EF 60 to 65%. There is no significant valvular disease. Ulcerative colitis H/O recurrent C. difficile infection Continue mesalamine Currently no acute issues DVT Px: As per Primary Team Admission and Anticipated Discharge Date Admission Date: January 03, 2022 Subjective Pt seen in follow up/ consultation for lumbar disc herniation, s/p lumbar spine surgery yesterday Patient is currently standing/ walking in his room, in no acute distress No fever, chills, chest pain, shortness of breath Pt reports dark urine this AM, now much improved after fluids No BM HbA1c 8.3% - close pcp follow up to be arranged Review of Systems Review of Systems: All systems reviewed & are unremarkable except as noted in Subjective Physical Exam Physical Exam: General Appearance:Moderately built and nourished, no apparent distress Head: normocephalic, Atraumatic Eyes: normal inspection, EOMI Neck: supple Respiratory/Chest: Normal breath sounds, CTA, No accessory muscle use Cardiovascular: S1, S2, + tachycardia HR 100s, No murmur Abdomen/GI:Soft, Non tender, Bowel sounds present Back: surg. dressings applied, CAROL ANN drain Extremities/Musculoskeletal:normal inspection, Trace edema Neurologic/Psych:AAOX3, moves extremities Skin: normal color, warm Results & Data Results & Data ([facility]) Vital Signs (Past 12 Hours) Vital Signs Temp Pulse Pulse Resp BP Pulse Ox O2 Del Method 01/06/22 07:11 36.9 C 114 H 16 130/83 92 Room Air 01/06/22 02:56 36.9 C 110 H 16 118/76 90 Room Air 01/05/22 22:24 36.8 C 125 H 18 123/74 90 Room Air 01/05/22 20:22 91 Room Air Laboratory Results 01/06/22 01/06/22 01/06/22 Range/Units 08:06 07:00 07:00 WBC 13.33 H (4.8-10.8) K/ul RBC 5.31 (4.63-6.08) M/uL Hgb 16.0 (14.0-18.0) g/dl Hct 46.9 (40.1-51.0) % MCV 88.3 (80.0-100.0) fL MCH 30.1 (25.0-34.0) pg MCHC 34.1 (32.0-36.0) g/dL RDW Std Deviation 41.9 (36.4-46.3) fL RDW Coeff of Margaux 12.9 (11.5-14.5) % Plt Count 334 (130-400) K/uL MPV 9.1 L (9.4-12.4) fL Immature Gran % (Auto) 0.5 % Neut % (Auto) 74.7 % Lymph % (Auto) 14.4 % [place] % (Auto) 9.6 % Eos % (Auto) 0.5 % Baso % (Auto) 0.3 % Neut # (Auto) 9.95 H (1.4-6.5) K/uL Lymph # (Auto) 1.92 (1.2-3.4) K/uL [place] # (Auto) 1.28 H (0.24-0.82) K/uL Eos # (Auto) 0.07 (0-0.50) K/uL Baso # (Auto) 0.04 (0-0.2) K/uL Immature Gran # (Auto) 0.07 H (0.00-0.02) K/uL Sodium 136 (136-145) mmol/L Potassium 3.7 (3.5-5.1) mmol/L Chloride 98 (98-107) mmol/L Carbon Dioxide 28 (21-32) mmol/L Anion Gap 10 (3-11) BUN 16 (6-23) mg/dl Creatinine 1.29 D (0.6-1.4) mg/dl Est Cr Clr Drug Dosing 61.9 ml/min Est GFR ( Amer) 66.1 ml/min Est GFR (Non-Af Amer) 57.0 ml/min BUN/Creatinine Ratio 12.4 (10-20) Glucose 174 H (70-99(Fasting)) mg/dl POC Glucose 165 H (70-99) mg/dl Calcium 9.9 (8.5-10.1) mg/dl Magnesium 2.1 (1.7-2.4) mg/dl 01/05/22 01/05/22 01/05/22 Range/Units 20:26 16:27 12:06 WBC (4.8-10.8) K/ul RBC (4.63-6.08) M/uL Hgb (14.0-18.0) g/dl Hct (40.1-51.0) % MCV (80.0-100.0) fL MCH (25.0-34.0) pg MCHC (32.0-36.0) g/dL RDW Std Deviation (36.4-46.3) fL RDW Coeff of Margaux (11.5-14.5) % Plt Count (130-400) K/uL MPV (9.4-12.4) fL Immature Gran % (Auto) % Neut % (Auto) % Lymph % (Auto) % [place] % (Auto) % Eos % (Auto) % Baso % (Auto) % Neut # (Auto) (1.4-6.5) K/uL Lymph # (Auto) (1.2-3.4) K/uL [place] # (Auto) (0.24-0.82) K/uL Eos # (Auto) (0-0.50) K/uL Baso # (Auto) (0-0.2) K/uL Immature Gran # (Auto) (0.00-0.02) K/uL Sodium (136-145) mmol/L Potassium (3.5-5.1) mmol/L Chloride (98-107) mmol/L Carbon Dioxide (21-32) mmol/L Anion Gap (3-11) BUN (6-23) mg/dl Creatinine (0.6-1.4) mg/dl Est Cr Clr Drug Dosing ml/min Est GFR ( Amer) ml/min Est GFR (Non-Af Amer) ml/min BUN/Creatinine Ratio (10-20) Glucose (70-99(Fasting)) mg/dl POC Glucose 233 H 135 H 113 H (70-99) mg/dl Calcium (8.5-10.1) mg/dl Magnesium (1.7-2.4) mg/dl Medications Administered Current Inpatient Medications Acetaminophen (Acetaminophen 500 Mg Tab) 1,000 mg PO Q8H PRN PRN Reason: MILD Pain Scale 1,2,3 & Pre PT Stop: 02/04/22 17:16 Al Hydrox/Mg Hydrox/Simethicone (Aluminum/Magnesium Susp 30 Ml Udc) 30 ml PO Q6H PRN PRN Reason: Dyspepsia Stop: 02/04/22 17:16 Bisacodyl (Bisacodyl 10 Mg Supp) 10 mg MI DAILY PRN PRN Reason: Constipation Stop: 02/04/22 17:16 Dextrose (Dextrose 50% 50 Ml Syringe) 25 - 50 ml IV UD PRN; Protocol PRN Reason: Hypoglycemia Protocol Stop: 02/02/22 19:54 Diphenhydramine HCl (Diphenhydramine Capsule 25 Mg Cap) 25 mg PO Q6H PRN PRN Reason: Allergic Rhinitis/Insomnia Stop: 02/04/22 17:16 Docusate Sodium (Docusate Sodium 100 Mg Cap) 100 mg PO BID PRN PRN Reason: Constipation Stop: 02/02/22 20:59 Famotidine (Famotidine 20 Mg Tab) 20 mg PO Q12H PRN PRN Reason: Dyspepsia Stop: 02/04/22 17:16 Gabapentin (Gabapentin 300 Mg Cap) 300 mg PO Q8H FRANKIE Stop: 02/02/22 12:04 Last Admin: 01/06/22 04:39 Dose: 300 mg Glucagon (Glucagon For Inj 1 Mg Vial) 1 mg SQ UD PRN; Protocol PRN Reason: Hypoglycemia Protocol Stop: 02/02/22 19:54 Glucose (Glucose 40% Gel 15 Gm Tube) 15 - 30 gm PO UD PRN; Protocol PRN Reason: Hypoglycemia Protocol Stop: 02/02/22 19:54 Glucose (Glucose 10 Tab/Tube) 4 - 8 tab PO UD PRN; Protocol PRN Reason: Hypoglycemia Treatment Stop: 02/02/22 19:54 Hydromorphone HCl (Hydromorphone Inj 0.5 Mg/0.5 Ml Syr) 0.5 mg IV Q3H PRN PRN Reason: MODERATE Pain (Scale 4,5,6) & Pre PT Stop: 01/19/22 17:16 Hydromorphone HCl (Hydromorphone Inj 1 Mg/Ml Syringe) 1 mg IV Q3H PRN PRN Reason: SEVERE Pain (Scale 7,8,9,10) Stop: 01/19/22 17:16 Hydroxyzine HCl (Hydroxyzine Hcl 25 Mg Tab) 25 mg PO Q8H PRN PRN Reason: Anxiety Stop: 02/04/22 17:16 Acetaminophen (Ofirmev) 1,000 mg in 100 mls @ 400 mls/hr IV Q8H PRN PRN Reason: Pain Rating 1-3 & Pre PT Stop: 01/06/22 17:17 Promethazine HCl 12.5 mg/ (Sodium Chloride) 50.5 mls @ 202 mls/hr IV Q6H PRN PRN Reason: Nausea &/or Vomiting Stop: 02/04/22 17:16 Lorazepam 0.5 mg/ Syringe 0.5 mls @ 2 mls/min IV Q8H PRN PRN Reason: Sedation/Anxiety Stop: 02/04/22 17:16 Insulin Aspart (Insulin Aspart Per Unit) 0 units SC [facility] Stop: 02/04/22 05:59 Last Admin: 01/05/22 20:43 Dose: 4 units Insulin Glargine (Lantus Per Unit Charge) 0 units SQ HS FRANKIE; Protocol Stop: 02/04/22 20:59 Last Admin: 01/05/22 20:44 Dose: 7 units Lorazepam (Lorazepam 0.5 Mg Tab) 0.5 mg PO Q8H PRN PRN Reason: Sedation/Anxiety Stop: 02/04/22 17:16 Magnesium Hydroxide (Magnesium Hydroxide Susp 30 Ml Udc) 30 ml PO Q24H PRN PRN Reason: Constipation Stop: 02/04/22 17:16 Mesalamine (Mesalamine 1.2 Gm Tablet) 4 each PO Q24H FRANKIE Stop: 02/03/22 12:14 Last Admin: 01/05/22 13:20 Dose: Not Given Metoclopramide HCl (Metoclopramide Hcl Inj 5 Mg/Ml 2 Ml Vial) 10 mg IV Q6H PRN PRN Reason: Nausea &/or Vomiting Stop: 02/04/22 17:16 Miscellaneous (Carbohydrates For Hypoglycemia ) 15 - 30 gm PO UD PRN PRN Reason: Hypoglycemia Protocol Stop: 02/02/22 19:54 Miscellaneous Information (Pharmacy Glycemic Mgmt Consult) 1 each N/A UD PRN PRN Reason: Consult Stop: 02/02/22 19:54 Naloxone HCl (Naloxone Hcl 0.4 Mg/1 Ml Vial/Carp) 0.1 mg IV Q5M PRN PRN Reason: Oversedation/Resp depression Stop: 02/04/22 17:16 Ondansetron HCl (Ondansetron Inj 2 Mg/Ml 2 Ml Vial) 4 mg IV Q6H PRN PRN Reason: Nausea &/or Vomiting Stop: 02/04/22 17:16 Ondansetron HCl (Ondansetron 4 Mg Od Tab) 4 mg PO Q6H PRN PRN Reason: Nausea Stop: 02/04/22 17:16 Oxycodone HCl (Oxycodone Hcl Ir 5 Mg Tab (Immediate Release)) 5 - 10 mg PO Q4H PRN PRN Reason: Pain & Pre PT Stop: 01/19/22 17:16 Last Admin: 01/06/22 04:38 Dose: 5 mg Polyethylene Glycol (Polyethylene (Miralax) 17 Gm Pack) 17 gm PO Q6 FRANKIE Stop: 02/05/22 05:59 Last Admin: 01/06/22 06:10 Dose: 17 gm Senna/Docusate Sodium (Docusate Sodium/Senna 50/8.6mg Tab) 2 tab PO HS FRANKIE Stop: 02/04/22 20:59 Last Admin: 01/05/22 20:43 Dose: 2 tab Sodium Biphosphate/Sodium Phosphate (Sod Phosphate/Sod Biphosphate Enema 132 Ml Btl) 132 ml MI ONE PRN PRN Reason: Constipation Stop: 02/04/22 17:16 Tramadol HCl (Tramadol Hcl 50 Mg Tablet) 50 - 100 mg PO Q4H PRN PRN Reason: Moderate-Severe pain & Pre PT Stop: 02/04/22 17:16
[2022-01-06 08:03] LABS: Basophils # (auto) 0.04 K/uL (0-0.2); Basophils % (auto) 0.3 %; Eosinophils # (auto) 0.07 K/uL (0-0.50); Eosinophils % (auto) 0.5 %; Hematocrit (blood only) 46.9 % (40.1-51.0); Immature Granulocytes # (auto) 0.07 K/uL (0.00-0.02); Immature Granulocytes % (auto) 0.5 %; Lymphocytes # (auto) 1.92 K/uL (1.2-3.4); Lymphocytes % (auto) 14.4 %; Mean Corpuscular Hemoglobin 30.1 pg (25.0-34.0); Mean Corpuscular Hgb Conc 34.1 g/dL (32.0-36.0); Mean Corpuscular Volume 88.3 fL (80.0-100.0); Mean Platelet Volume 9.1 fL (9.4-12.4); Monocytes # (auto) 1.28 K/uL (0.24-0.82); Monocytes % (auto) 9.6 %; Neutrophils # (auto) 9.95 K/uL (1.4-6.5); Neutrophils % (auto) 74.7 %; Platelet Count 334 K/uL (130-400); RDW Coefficient of Variation 12.9 % (11.5-14.5); RDW Standard Deviation 41.9 fL (36.4-46.3); Red Blood Count 5.31 M/uL (4.63-6.08); White Blood Count 13.33 K/ul (4.8-10.8)
[2022-01-06 08:37] LABS: BUN Creatinine Ratio 12.4 (10-20); Calcium 9.9 mg/dl (8.5-10.1); Creatinine Clr Calc Pharmacy 61.9 ml/min; Est GFR (African American) 66.1 ml/min; Magnesium 2.1 mg/dl (1.7-2.4); Potassium 3.7 mmol/L (3.5-5.1)
[2022-01-06] MEDS ORDERED: SODIUM CHLORIDE 0.9% 1000ML 500 ML IV ONE (08:55)
[2022-01-06] MEDS: INSULIN ASPART PER UNIT SC SCH ×4 (09:15→21:30)
--- NOTE | 2022-01-06 09:22 | Orthopedic Progress Note ---
Date of Service January 06, 2022 Assessment & Plan (1) HNP (herniated nucleus pulposus), lumbar: Plan: This time initiate physical therapy monitor his CAROL ANN operatively discharge home in the next few days. Admission and Anticipated Discharge Date Admission Date: January 03, 2022 Subjective Back pain controlled leg pain markedly improved Physical Exam Physical Exam: Patient is comfortable. Is good strength testing. Results & Data ([facility]) Vital Signs (Past 12 Hours) Vital Signs Temp Pulse Pulse Resp BP Pulse Ox O2 Del Method 01/06/22 07:11 36.9 C 114 H 16 130/83 92 Room Air 01/06/22 02:56 36.9 C 110 H 16 118/76 90 Room Air 01/05/22 22:24 36.8 C 125 H 18 123/74 90 Room Air
[2022-01-06] MEDS: MESALAMINE 1.2 GM PO SCH (12:28)
--- NOTE | 2022-01-06 14:44 | Pharmacy Report ---
Pharmacy Glycemic Short Note 2 - Date of Service January 06, 2022 - Glycemic Short BSG Results (Last 24 hours): 01/05/22 01/05/22 01/06/22 16:27 20:26 07:00 Glucose 174 H POC Glucose 135 H 233 H 01/06/22 01/06/22 08:06 12:09 Glucose POC Glucose 165 H 205 H OUTPATIENT ANTIDIABETIC REGIMEN: * Metformin 1 gm BID, Trulicity * A1c 8.3% 01/04 ASSESSMENT: 01/06 * Fasting BSG trending upward, 165 mg/dL this morning, will adjust lantus scale * Novolog parameters the same for now, may need tightened if BSGs trend upward, possible discharge tomorrow 01/04 * Pt admitted for spinal surgery, 01/05. Will be NPO after midnight---> reduce/hold lantus this evening per scale * BSGs have been well controlled today, continue current novolog parameters PLAN FOR INPATIENT GLYCEMIC CONTROL: * Hold outpatient oral diabetes medications * Basal insulin * Lantus 7/15 units HS x 1 * Bolus insulin * NovoLog per scale ACHS or Q6hrs while NPO * Goal Range: Low 110 mg/dL - High 140 mg/dL * Correction Factor: 25 mg/dL/unit * Nutritional / Prandial insulin per carb ratio of 1 unit per 9 grams CHO consumed
[2022-01-06] MEDS: DOCUSATE SODIUM/SENNA 50/8.6MG TAB PO SCH (20:54)
[2022-01-06] MEDS: LANTUS PER UNIT CHARGE SQ SCH (21:30)
[2022-01-07] MEDS: POLYETHYLENE (MIRALAX) 17 GM PACK PO SCH (00:30)
[2022-01-07] MEDS: GABAPENTIN 300 MG CAP PO SCH ×2 (04:50→11:45)
--- NOTE | 2022-01-07 07:31 | Hospitalist Progress Note ---
Date of Service January 07, 2022 Assessment & Plan (1) Lumbar disc herniation: Plan: Lumbar disc herniation H/O lumbar spinal stenosis S/P multiple surgeries Ambulatory dysfunction Pain control as per primary team s/p lumbar decompression fusion surgery by Dr. Wayne, on 01/05 Bowel regimen to prevent constipation CHARLENE - resolved Cr 1 this AM - improved after IVF and po fluids DM Type II: Will hold oral diabetic meds Current HbA1c 8.3% - close PCP follow up arranged after DC ISS, basal Insulin, Accu checks, Diabetic diet Pharmacy Glycemic control consult while inpt Chronic tachycardia Unclear etiology EKG with T inversions in inferior leads, sinus tachycardia Pt with no chest pain or any cardiac history Echo obtained -LV normal in size. Normal LV wall thickness. LV wall motion is normal. EF 60 to 65%. There is no significant valvular disease. Ulcerative colitis H/O recurrent C. difficile infection Continue mesalamine Currently no acute issues DVT Px: As per Primary Team Admission and Anticipated Discharge Date Admission Date: January 03, 2022 Subjective Pt seen in follow up/ consultation for lumbar disc herniation, s/p lumbar spine surgery Patient is currently laying in bed, in no acute distress No fever, chills, chest pain, shortness of breath Pt is urinating and having BMs HbA1c 8.3% - close pcp follow was arranged Review of Systems Review of Systems: All systems reviewed & are unremarkable except as noted in Subjective Physical Exam Physical Exam: General Appearance:Moderately built and nourished, no apparent distress Head: normocephalic, Atraumatic Eyes: normal inspection, EOMI Neck: supple Respiratory/Chest: Normal breath sounds, CTA, No accessory muscle use Cardiovascular: S1, S2, + tachycardia HR 100s, No murmur Abdomen/GI:Soft, Non tender, Bowel sounds present Back: surg. dressings applied, CAROL ANN drain Extremities/Musculoskeletal:normal inspection, Trace edema Neurologic/Psych:AAOX3, moves extremities Skin: normal color, warm Results & Data Results & Data ([facility]) Vital Signs (Past 12 Hours) Vital Signs Temp Pulse Pulse Resp BP BP Pulse Ox 01/07/22 07:01 36.7 C 103 H 16 144/79 H 94 01/06/22 22:19 116 H 01/06/22 21:52 37.2 C 120 H 20 116/64 91 O2 Del Method 01/07/22 07:01 Room Air 01/06/22 22:19 01/06/22 21:52 Room Air Laboratory Results 01/07/22 01/07/22 01/07/22 Range/Units 08:06 07:14 07:14 WBC 11.15 H (4.8-10.8) K/ul RBC 4.67 (4.63-6.08) M/uL Hgb 14.1 (14.0-18.0) g/dl Hct 41.6 (40.1-51.0) % MCV 89.1 (80.0-100.0) fL MCH 30.2 (25.0-34.0) pg MCHC 33.9 (32.0-36.0) g/dL RDW Std Deviation 42.3 (36.4-46.3) fL RDW Coeff of Margaux 13.0 (11.5-14.5) % Plt Count 249 (130-400) K/uL MPV 9.0 L (9.4-12.4) fL Sodium 134 L (136-145) mmol/L Potassium 4.0 (3.5-5.1) mmol/L Chloride 101 (98-107) mmol/L Carbon Dioxide 26 (21-32) mmol/L Anion Gap 7 (3-11) BUN 15 (6-23) mg/dl Creatinine 0.95 D (0.6-1.4) mg/dl Est Cr Clr Drug Dosing 84.1 ml/min Est GFR ( Amer) 95.6 ml/min Est GFR (Non-Af Amer) 82.5 ml/min BUN/Creatinine Ratio 15.8 (10-20) Glucose 179 H (70-99(Fasting)) mg/dl POC Glucose 183 H (70-99) mg/dl Calcium 8.9 (8.5-10.1) mg/dl 01/06/22 01/06/22 01/06/22 Range/Units 20:34 17:01 12:09 WBC (4.8-10.8) K/ul RBC (4.63-6.08) M/uL Hgb (14.0-18.0) g/dl Hct (40.1-51.0) % MCV (80.0-100.0) fL MCH (25.0-34.0) pg MCHC (32.0-36.0) g/dL RDW Std Deviation (36.4-46.3) fL RDW Coeff of Margaux (11.5-14.5) % Plt Count (130-400) K/uL MPV (9.4-12.4) fL Sodium (136-145) mmol/L Potassium (3.5-5.1) mmol/L Chloride (98-107) mmol/L Carbon Dioxide (21-32) mmol/L Anion Gap (3-11) BUN (6-23) mg/dl Creatinine (0.6-1.4) mg/dl Est Cr Clr Drug Dosing ml/min Est GFR ( Amer) ml/min Est GFR (Non-Af Amer) ml/min BUN/Creatinine Ratio (10-20) Glucose (70-99(Fasting)) mg/dl POC Glucose 263 H 199 H 205 H (70-99) mg/dl Calcium (8.5-10.1) mg/dl Medications Administered Current Inpatient Medications Acetaminophen (Acetaminophen 500 Mg Tab) 1,000 mg PO Q8H PRN PRN Reason: MILD Pain Scale 1,2,3 & Pre PT Stop: 02/04/22 17:16 Al Hydrox/Mg Hydrox/Simethicone (Aluminum/Magnesium Susp 30 Ml Udc) 30 ml PO Q6H PRN PRN Reason: Dyspepsia Stop: 02/04/22 17:16 Bisacodyl (Bisacodyl 10 Mg Supp) 10 mg ME DAILY PRN PRN Reason: Constipation Stop: 02/04/22 17:16 Dextrose (Dextrose 50% 50 Ml Syringe) 25 - 50 ml IV UD PRN; Protocol PRN Reason: Hypoglycemia Protocol Stop: 02/02/22 19:54 Diphenhydramine HCl (Diphenhydramine Capsule 25 Mg Cap) 25 mg PO Q6H PRN PRN Reason: Allergic Rhinitis/Insomnia Stop: 02/04/22 17:16 Docusate Sodium (Docusate Sodium 100 Mg Cap) 100 mg PO BID PRN PRN Reason: Constipation Stop: 02/02/22 20:59 Famotidine (Famotidine 20 Mg Tab) 20 mg PO Q12H PRN PRN Reason: Dyspepsia Stop: 02/04/22 17:16 Gabapentin (Gabapentin 300 Mg Cap) 300 mg PO Q8H FRANKIE Stop: 02/02/22 12:04 Last Admin: 01/07/22 04:50 Dose: 300 mg Glucagon (Glucagon For Inj 1 Mg Vial) 1 mg SQ UD PRN; Protocol PRN Reason: Hypoglycemia Protocol Stop: 02/02/22 19:54 Glucose (Glucose 40% Gel 15 Gm Tube) 15 - 30 gm PO UD PRN; Protocol PRN Reason: Hypoglycemia Protocol Stop: 02/02/22 19:54 Glucose (Glucose 10 Tab/Tube) 4 - 8 tab PO UD PRN; Protocol PRN Reason: Hypoglycemia Treatment Stop: 02/02/22 19:54 Hydromorphone HCl (Hydromorphone Inj 0.5 Mg/0.5 Ml Syr) 0.5 mg IV Q3H PRN PRN Reason: MODERATE Pain (Scale 4,5,6) & Pre PT Stop: 01/19/22 17:16 Hydromorphone HCl (Hydromorphone Inj 1 Mg/Ml Syringe) 1 mg IV Q3H PRN PRN Reason: SEVERE Pain (Scale 7,8,9,10) Stop: 01/19/22 17:16 Hydroxyzine HCl (Hydroxyzine Hcl 25 Mg Tab) 25 mg PO Q8H PRN PRN Reason: Anxiety Stop: 02/04/22 17:16 Promethazine HCl 12.5 mg/ (Sodium Chloride) 50.5 mls @ 202 mls/hr IV Q6H PRN PRN Reason: Nausea &/or Vomiting Stop: 02/04/22 17:16 Lorazepam 0.5 mg/ Syringe 0.5 mls @ 2 mls/min IV Q8H PRN PRN Reason: Sedation/Anxiety Stop: 02/04/22 17:16 Insulin Aspart (Insulin Aspart Per Unit) 0 units SC [facility] Stop: 02/04/22 05:59 Last Admin: 01/06/22 21:30 Dose: 9 units Insulin Glargine (Lantus Per Unit Charge) 0 units SQ HS [facility]; Protocol Stop: 02/04/22 20:59 Last Admin: 01/06/22 21:30 Dose: 15 units Lorazepam (Lorazepam 0.5 Mg Tab) 0.5 mg PO Q8H PRN PRN Reason: Sedation/Anxiety Stop: 02/04/22 17:16 Magnesium Hydroxide (Magnesium Hydroxide Susp 30 Ml Udc) 30 ml PO Q24H PRN PRN Reason: Constipation Stop: 02/04/22 17:16 Mesalamine (Mesalamine 1.2 Gm Tablet) 4 each PO Q24H FRANKIE Stop: 02/03/22 12:14 Last Admin: 01/06/22 12:28 Dose: 4 each Metoclopramide HCl (Metoclopramide Hcl Inj 5 Mg/Ml 2 Ml Vial) 10 mg IV Q6H PRN PRN Reason: Nausea &/or Vomiting Stop: 02/04/22 17:16 Miscellaneous (Carbohydrates For Hypoglycemia ) 15 - 30 gm PO UD PRN PRN Reason: Hypoglycemia Protocol Stop: 02/02/22 19:54 Miscellaneous Information (Pharmacy Glycemic Mgmt Consult) 1 each N/A UD PRN PRN Reason: Consult Stop: 02/02/22 19:54 Naloxone HCl (Naloxone Hcl 0.4 Mg/1 Ml Vial/Carp) 0.1 mg IV Q5M PRN PRN Reason: Oversedation/Resp depression Stop: 02/04/22 17:16 Ondansetron HCl (Ondansetron Inj 2 Mg/Ml 2 Ml Vial) 4 mg IV Q6H PRN PRN Reason: Nausea &/or Vomiting Stop: 02/04/22 17:16 Ondansetron HCl (Ondansetron 4 Mg Od Tab) 4 mg PO Q6H PRN PRN Reason: Nausea Stop: 02/04/22 17:16 Oxycodone HCl (Oxycodone Hcl Ir 5 Mg Tab (Immediate Release)) 5 - 10 mg PO Q4H PRN PRN Reason: Pain & Pre PT Stop: 01/19/22 17:16 Last Admin: 01/06/22 19:40 Dose: 5 mg Senna/Docusate Sodium (Docusate Sodium/Senna 50/8.6mg Tab) 2 tab PO HS FRANKIE Stop: 02/04/22 20:59 Last Admin: 01/06/22 20:54 Dose: 2 tab Sodium Biphosphate/Sodium Phosphate (Sod Phosphate/Sod Biphosphate Enema 132 Ml Btl) 132 ml ME ONE PRN PRN Reason: Constipation Stop: 02/04/22 17:16 Tramadol HCl (Tramadol Hcl 50 Mg Tablet) 50 - 100 mg PO Q4H PRN PRN Reason: Moderate-Severe pain & Pre PT Stop: 02/04/22 17:16
[2022-01-07 07:42] LABS: Hematocrit (blood only) 41.6 % (40.1-51.0); Hemoglobin 14.1 g/dl (14.0-18.0); Mean Corpuscular Hemoglobin 30.2 pg (25.0-34.0); Mean Corpuscular Hgb Conc 33.9 g/dL (32.0-36.0); Mean Corpuscular Volume 89.1 fL (80.0-100.0); Platelet Count 249 K/uL (130-400); RDW Standard Deviation 42.3 fL (36.4-46.3); Red Blood Count 4.67 M/uL (4.63-6.08); White Blood Count 11.15 K/ul (4.8-10.8)
[2022-01-07] MEDS: oxyCODONE HCL IR 5 MG TAB (IMMEDIATE RELEASE) PO PRN (07:47)
[2022-01-07 08:22] LABS: BUN Creatinine Ratio 15.8 (10-20); Calcium 8.9 mg/dl (8.5-10.1); Creatinine Clr Calc Pharmacy 84.1 ml/min; Est GFR (African American) 95.6 ml/min; Est GFR (Non-African American) 82.5 ml/min
--- NOTE | 2022-01-07 08:36 | Discharge Summary ---
Date of Service January 07, 2022 Admission HPI Per Admitting Provider Tim is a pleasant 66-year-old gentleman who presents to the ER this morning due to increasing pain involving his lower back and radiating down his left lower extremity. Symptoms have been ongoing but really quite severe over the past 2 weeks. He has completed physical therapy without improvement. He has seen Dr. Bernal one of her local pain management physicians but after MRI was performed due to his degree of stenosis and disc herniation L1 2 injections were deferred. He met with Dr. Wayne last week for surgical consultation. Currently at home he has been taking Zanaflex, Neurontin, Percocet for pain co ntrol. Symptoms involve the lower lumbar region rating down the left buttock and thigh. Sometimes it affects the left knee. Right leg is asymptomatic. Standing and walking reproduces symptoms. He is most comfortable lying down or in a seated position. Ambulates independently. Denies bowel or bladder changes. Denies perineum numbness. He has had 2 prior lumbar laminectomies [address] Agustin in the . Second 1 was 3 or [address] Alvarado. Principal Diagnosis Lumbar disc herniation with radiculopathy Discharge Data Allergies Allergy/AdvReac Type Severity Reaction Status Date / Time No Known Allergies Allergy Verified 01/03/22 14:04 Consultations 01/03/22 09:52 ED Decision to Admit Stat 01/03/22 12:05 Consult Internal Medicine Routine Procedures Performed Operation Date: 01/05/22 13:25 Actual Procedures p L1-L2 Decompression and Fusion(Not Applicable) - Oscar Wayne, Ordered Studies 01/05/22 13:25 FL lumbar spine 2-3V Routine Hospital Course (1) Lumbar disc herniation: (2) HNP (herniated nucleus pulposus), lumbar: Patient was admitted with severe leg pain and underwent urgent decompression fusion. Tolerated procedure well stable orthopedic for possibly postop day 1 is up and ambulating progress postop day #2. CAROL ANN drain decreased appropriate production strength testing. Safely discharge home. Discharge orders instructions from the chart for further review. Total Time Total Time Spent Total Time Spent (In Minutes): 20 minutes Discharge Plan Discharge Items Patient Disposition: Home - Self-Care Reason For Visit: POST OP Discharge Diagnosis: Lumbar disc herniation with radiculopathy Condition on Discharge: Good Activity: As commented below Non-emergency contact: Primary Care Provider Call non-emergency contact if: you have any medication questions Follow-up/Referrals: Shayna Dye MD [Primary Care Provider] - 01/16/22 3:00 pm Diet: Regular Addtl Attending Provider Instructions: ACTIVITY RECOMMENDATIONS: SELF CARE INSTRUCTIONS AFTER THORACIC/LUMBAR FUSIONS 1. You may walk to your tolerance. It is good exercise for your legs and back. Expect some back and intermittent leg aches and pains. 2. You may perform "counter-top" level activities (make a sandwich, chano with a project, etc.). 3. No bending or lifting of more than 10 pounds or back twisting of any nature (roll like a log when turning in bed). 4. You may ride in a car for 20-30 minutes at a time. No driving until after your first visit with your doctor. 5. Frequent changes of position and restricting sitting to 30 minutes at a time will help limit the amount of back spasms and stiffness you may experience. 6. You may discontinue the use of ambulatory aids (cane, crutches, etc.) once your strength and confidence allow. 7. You may side stitching machine operator the shower and let water strike your incision when you arrive home at least once daily. Do not take a tub bath, sit in a hot tub or go into a swimming pool until after your first recheck in the office. SPECIAL CARE INSTRUCTIONS: VERY IMPORTANT TO READ AND REVIEW A. Your surgical incision has been closed with a cosmetic suture under the skin that will dissolve in about 6 weeks. In 14 days, you can use a pair of clean scissors and cut the suture that is left outside of the skin at the ends of your incision. 1. The small skin tapes can be removed 7 days after surgery if they have not fallen off by that point. 2. You may keep the wound open to air as much as possible to promote healing after post-op day number 5 unless told otherwise by your doctor. 3. If you think the wound looks like it is becoming infected (redness or worsening drainage) and/or you are experiencing fever, chill or worsening back pain and muscle spasms, contact the office so that we may evaluate you as soon as possible. B. Complications are uncommon, but please contact us if you have any signs or symptoms of: 1. wound infection (fever higher than 102.5 degrees F, redness, separation of wound, drainage, or increasing pain from the incision) 2. blood clots in legs (pain, swelling, redness and warmth in legs) 3. urinary tract infection (fever higher than 102.5 degrees F, burning upon urination or increased frequency of urination) 4. nerve problems (inability to walk on your toes or heels, numbness, loss of bowel or bladder control) 5. any other symptoms that concern you C. Please call the office at if you have any concerns or questions about your operation or recovery. D. No smoking! Smoking drastically decreases the chance of a solid fusion. E. Do not take any anti-inflammatory medications (Indocin, Advil, Motrin, Aspirin, Naprosyn, etc.) as these may inhibit the chance of a solid fusion. Tylenol is okay to take for pain. MANAGING PAIN AFTER SPINAL SURGERY 1. Narcotic medication is intended for short-term use and will be provided for surgical pain. Surgical pain usually lasts for a period of 4-6 weeks. Narcotic medication includes Percocet, Vicodin, Darvocet, Tylenol #3 or Lortab. 2. Longer-term pain is more appropriately treated with non-narcotic medication such as Tylenol ES. 3. Muscle spasm is not appropriately treated with narcotics. Muscle relaxers such as Soma, Flexeril or Skelaxin can be used along with Tylenol ES. 4. Remember that we all live with some "aches and pains". This is not unusual or uncommon after an injury or as we get older. a. Back pain is expected and may include muscle spasms for 4 to 6 weeks after surgery. The pain should gradually improve. If the pain worsens for no apparent reason, please contact the office. b. Intermittent leg pain may also be experienced and should not be concerned about unless it worsens for no apparent reason. If so, please contact the office. 5. We will provide appropriate medication within the normal guidelines of their prescribed use. We will also be very cautious and aware of potential abuse and extended duration of patients' medication needs. a. Pain medications are for your comfort and to assist with sleep and rest so that the tissue can heal. They are not provided in order to return to normal activity and should not be used through the day. To do so or worsening pain at night can result from ongoing tissue damage and development of tolerance to the prescribed medicine. 6. Please allow 2-3 days to process refills. Prescriptions will not be mailed but must be picked up at the office. FOLLOW UP VISIT: Keep your scheduled follow-up appointment. Any questions, please call the office at . Pending Studies at Discharge: No Stand-Alone Forms: My [facility] [address], Smoking Cessation Medications and DC Order Prescriptions: New oxycodone 5 mg tablet 5 mg PO Q6H PRN (Reason: pain, severe) Qty: 30 0RF tramadol 50 mg tablet 50 mg PO Q6H PRN (Reason: pain, moderate) Qty: 30 0RF Continued metformin 1,000 mg Tablet 1,000 mg PO BID cholecalciferol (vitamin D3) [Vitamin D3] 1,000 unit Tablet 1,000 unit PO DAILY tizanidine 4 mg tablet 4 mg PO Q12H MDD 3 DOSES/24 HOURS PRN (Reason: MUSCLE SPASMS) cyanocobalamin (vitamin B-12) [Vitamin B-12] 1,000 mcg Tablet 1,000 mcg PO DAILY mesalamine [Apriso] 0.375 gram Capsule,Extended Release 24hr 1.5 g PO DAILY Men's Multivitamin 400-20-300 mcg Tablet 1 tab PO DAILY gabapentin 300 mg capsule 300 mg PO Q8H Qty: 90 0RF acetaminophen [Tylenol Extra Strength] 500 mg Tablet 1,000 mg PO Q6H PRN (Reason: Pain) oxycodone-acetaminophen 5-325 mg tablet 1 tab PO Q6 PRN (Reason: Pain) Trulicity 0.75 mg/0.5 mL pen injector 1.5 mg SUBCUT Q7D Discharge Orders: Discharge Order (Routine); Ordered 01/07/22 Ordered By: Oscar Mendoza/Other Patient Handouts: Managing Type 2 Diabetes Admission Data Admit Date/Time: 01/03/22 09:56 Attending Provider: Oscar Wayne Admit Provider: Oscar Wayne Primary Care Provider: Shayna Dye Other Providers: Emiliano Chandler ; Oscar Wayne ; Rocio Klein
[2022-01-07] MEDS ORDERED: LANTUS PER UNIT CHARGE SQ ONE (09:00)
[2022-01-07] MEDS: INSULIN ASPART PER UNIT SC SCH ×2 (09:16→13:21)
[2022-01-07] MEDS: MESALAMINE 1.2 GM PO SCH (11:45)
== END 2022-01-07 14:33 | disposition home or self-care (01) | DRG 454 ==
LOC: ED 08:22 → EDINP 09:56 → 3N 12:06